=== PATIENT | female | born 1945 | race Caucasian/White ===

== ENCOUNTER 2022-07-15 14:00 | Emergency (ER) | payer MEDICARE, BC, SELFPAY ==
[2022-07-15 14:25] VITALS: BP 153/103; PULSE 90; RESP 20; TEMP 36.9; O2SAT 92
[2022-07-15 14:50] LABS: Appearance Urine Clear (Clear); Bilirubin Urine Negative (Negative); Blood Urine Negative (Negative); Color Urine Yellow (Yellow); Glucose Urine Negative (Negative); Ketones Urine 1+ (Negative); Leukocyte Esterase Urine Negative (Negative); Nitrite Urine Negative (Negative); Protein Urine Trace (Negative); Specific Gravity Urine 1.025 (1.000-1.030); Urobilinogen Urine 0.2 (0.2-1.0); pH Urine 6.5 (5.0-8.5)
[2022-07-15 14:57] LABS: RBC Urine 0-2 (0-2)
[2022-07-15 14:58] LABS: Squamous Epithelial Cell Urine Few (None-Few); WBC Urine 0-2 (0-5)
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
[2022-07-15 15:13] LABS: Basophils Absolute Auto 0.03 K/uL (0.00-0.30); Basophils Percent Auto 0.5 % (0.0-3.0); Eosinophils Absolute Auto 0.07 K/uL (0.00-0.50); Eosinophils Percent Auto 1.2 % (0.0-7.0); Hematocrit 42.4 % (33.0-51.0); Hemoglobin* 14.6 gm/dL (12.0-16.0); Immature Granulocytes Abs Auto 0.04 K/uL (0.00-0.30); Lymphocytes Percent Auto 16.6 % (20-44); Mean Corpuscular HGB Conc 34 gm/dL (32-36); Mean Corpuscular Hemoglobin 32 pg (26-34); Mean Corpuscular Volume 93 fL (80-100); Monocytes Percent Auto 8.6 % (0.0-11.0); Neutrophils Percent Auto 72.4 % (42.0-72.0); Platelet Count* 233 K/uL (140-440); RDW Coefficient of Variation % 12.7 % (11.5-15.5); Red Blood Count 4.54 m/uL (4.00-5.20); White Blood Count* 6.07 K/uL (4.50-11.00)
[2022-07-15 15:24] LABS: Slide Review Reflex No
[2022-07-15 15:29] LABS: Albumin* 4.4 g/dL (3.3-5.0)
[2022-07-15 15:30] LABS: Chloride* 97 mmol/L (96-114); Potassium* 3.7 mmol/L (3.6-5.1); Sodium* 132 mmol/L (135-149)
[2022-07-15 15:32] LABS: Carbon Dioxide* 26 mmol/L (20-32); Creatinine* 0.6 mg/dL (0.5-1.5); Estimated Glomerular Filt Rate 94 ml/min
[2022-07-15 15:33] LABS: Alanine Aminotransferase* 19 U/L (4-35); Alkaline Phosphatase* 54 U/L (40-150); Aspartate Amino Transferase* 29 U/L (12-35); Bilirubin Direct* 0.1 mg/dL (0.0-0.5); Bilirubin Total* 0.5 mg/dL (0.1-1.5); Blood Urea Nitrogen* 19 mg/dL (7-30); Calcium* 9.4 mg/dL (8.4-10.6); Glucose* 90 mg/dL (60-115); Total Protein* 7.2 g/dL (6.0-8.3)
--- NOTE | 2022-07-15 15:38 | CRLHL7_ITS ---
For Patients: As a result of the Cures Act, medical imaging exams and procedure reports are released immediately into your electronic medical record. You may view this report before your referring provider. If you have questions, please contact your health care provider. HISTORY: Cough. Weakness. TECHNIQUE: Two-view chest. COMPARISON: None. FINDINGS: Lungs are hyperinflated. Pulmonary emphysema. No airspace consolidation. No pleural effusion or pneumothorax. Pulmonary vasculature is normal. Cardiomediastinal silhouette size is normal. Aortic atherosclerotic calcifications. Degenerative changes of the spine. IMPRESSION: Hyperinflated lungs. Pulmonary emphysema. Dictated by Agustin Soto MD @ 07/15/2022 4:29:30 PM (Electronically Signed)
[2022-07-15 15:55] LABS: PCR FLU A Negative PCR FLU A (Negative); PCR FLU B Negative PCR FLU B (Negative); PCR RSV Negative PCR RSV (Negative)
--- NOTE | 2022-07-15 15:59 | ED.NURSE ---
Patient up to ed bathroom and back to room with no unsteadiness or difficulty noted.
[2022-07-15 16:09] LABS: SARS PCR* Negative SARS-CoV-2 (Negative)
--- NOTE | 2022-07-15 16:11 | ED.NURSE ---
Patient ordered grilled cheese sandwich.
--- NOTE | 2022-07-17 12:41 | PC.SOCIAL ---
Cherise Naranjo from [facility] called to see if pt. returned to the ED. She followed up with pt. by phone today and pt. told her she was still feeling week and was going to return to the ED. Updated Cherise that pt. is not at our hospital.
== END 2022-07-15 18:12 | disposition home or self-care (01) ==
PROVIDERS: Emergency Provider Family Medicine
DX: R53.1 Weakness (principal); T74.01XA Adult neglect or abandonment, confirmed, initial encounter; L29.9 Pruritus, unspecified
CPT/HCPCS: 36415; 71046; 80048; 80076; 81001; 85025; 87502; 87634; 87635; 93005; 99284; 99285

== ENCOUNTER 2023-03-01 02:38 | Outpatient (CLI) | payer MEDICARE, BC, SELFPAY | END 2023-03-01 02:39 | disposition home or self-care (01) | LOC: AMB 03-05 09:38 | PROVIDERS: Visit Provider Family Medicine | DX: R06.09 Other forms of dyspnea (principal); R53.81 Other malaise | CPT/HCPCS: A0425; A0427 ==

== ENCOUNTER 2023-03-01 03:25 | Inpatient (IN) | payer MEDICARE, BC, SELFPAY ==
[2023-03-01] VITALS (20 sets, daily range): BP systolic 99–131; BP diastolic 54–102; PULSE 53–79; RESP 16–22; TEMP 35.6–36.8; O2SAT 91–100; BMI 14.6
--- NOTE | 2023-03-01 03:37 | CRLHL7_ITS ---
For Patients: As a result of the Century Cures Act, medical imaging exams and procedure reports are released immediately into your electronic medical record. You may view this report before your referring provider. If you have questions, please contact your health care provider. Indication: Weight loss. Technique: Chest 2 views. Comparison: 07/15/2022. Findings/Impression: Cardiovascular and mediastinum: Heart size and vasculature are normal in caliber and appearance. Lungs and pleural spaces: There is blunting of the posterior costophrenic angle on the lateral image suggesting a pleural effusion. Remainder of the lungs and pleural spaces are clear. No pneumothorax. Bones and soft tissues: No significant findings. Dictated by Pastor Cyr MD @ 03/01/2023 4:38:38 AM (Electronically Signed)
[2023-03-01] MEDS: 0.9 % SODIUM CHLORIDE 500 ML 500 ML 1000 ML IV (03:49)
--- NOTE | 2023-03-01 03:50 | ED.NURSE ---
initial triage, no pulse O2 obtained, poor cap refill. pt changed for forhead O2 monitor, sats 98% on room air.
[2023-03-01 03:52] LABS: Basophils Absolute Auto 0.06 K/uL (0.00-0.30); Basophils Percent Auto 1.1 % (0.0-3.0); Eosinophils Absolute Auto 0.27 K/uL (0.00-0.50); Eosinophils Percent Auto 4.8 % (0.0-7.0); Hematocrit 47.4 % (33.0-51.0); Hemoglobin* 16.1 gm/dL (12.0-16.0); Immature Granulocytes Abs Auto 0.01 K/uL (0.00-0.30); Immature Granulocytes Pct Auto 0.2 %; Lymphocytes Absolute Auto 2.17 K/uL (0.90-2.90); Lymphocytes Percent Auto 38.4 % (20-44); Mean Corpuscular HGB Conc 34 gm/dL (32-36); Mean Corpuscular Hemoglobin 32 pg (26-34); Mean Corpuscular Volume 94 fL (80-100); Neutrophils Absolute Auto 2.86 K/uL (1.7-7.0); Neutrophils Percent Auto 50.5 % (42.0-72.0); Platelet Count* 204 K/uL (140-440); RDW Coefficient of Variation % 13.4 % (11.5-15.5); Red Blood Count 5.05 m/uL (4.00-5.20); Slide Review Reflex No; White Blood Count* 5.65 K/uL (4.50-11.00)
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
[2023-03-01 04:04] LABS: Albumin* 3.7 g/dL (3.3-5.0); Chloride* 100 mmol/L (96-114)
[2023-03-01 04:05] LABS: Potassium* 3.3 mmol/L (3.6-5.1); Sodium* 135 mmol/L (135-149)
[2023-03-01 04:07] LABS: Aspartate Amino Transferase* 123 U/L (12-35); Bilirubin Total* 0.5 mg/dL (0.1-1.5); Blood Urea Nitrogen* 13 mg/dL (7-30); Carbon Dioxide* 27 mmol/L (20-32); Creatinine* 0.9 mg/dL (0.5-1.5); Estimated Glomerular Filt Rate 67 ml/min; Total Protein* 6.5 g/dL (6.0-8.3)
[2023-03-01 04:08] LABS: Alanine Aminotransferase* 71 U/L (4-35); Alkaline Phosphatase* 46 U/L (40-150); Calcium* 9.4 mg/dL (8.4-10.6); Glucose* 120 mg/dL (60-115)
--- NOTE | 2023-03-01 06:30 | ED.NURSE ---
Patients brief changes, patient cleaned up.
--- NOTE | 2023-03-01 06:42 | ED.NURSE ---
Nurse to Nurse report given. Patient going to room 277.
--- NOTE | 2023-03-01 07:48 | PC.NURSE ---
[id number] Pt arrived, took vitals and oriented to room. Report given to day nurse. Ambulated to bed from ED bed, weight taken on standing scale. Pt tearful explaining why she is here.
--- NOTE | 2023-03-01 08:05 | CRLHL7_ITS ---
For Patients: As a result of the Century Cures Act, medical imaging exams and procedure reports are released immediately into your electronic medical record. You may view this report before your referring provider. If you have questions, please contact your health care provider. INDICATION: Pleural effusion. Transaminitis. Weight loss. Weakness TECHNIQUE: CT chest PE, abdomen and pelvis acquired with 95 cc Isovue 370 IV contrast. COMPARISON: None. FINDINGS: CHEST: Cardiovascular structures: Heart size is normal. Thoracic aorta and main pulmonary artery are normal in caliber. No sign of pulmonary embolism. Mediastinum and darcy: No mass or adenopathy. Lungs and pleura: Trace pleural effusions. No acute infiltrates and no suspicious nodules. Moderate COPD changes. No pneumothorax. Chest wall and axilla: No mass or adenopathy. Bones: No suspicious bone lesions. Unremarkable for age. ABDOMEN AND PELVIS: Liver: Hyperemia demonstrated in the liver adjacent to the gallbladder fossa. Liver is otherwise unremarkable. Gallbladder and bile ducts: Gallbladder is mildly dilated with pericholecystic fluid and possible wall thickening. Pancreas: Unremarkable. Spleen: Unremarkable. Adrenal glands: Unremarkable. Kidneys: Unremarkable. GI tract: Stool filled distention of the rectum and sigmoid colon. Moderate amount of stool in the remainder of the colon. Remainder of the GI tract appears within normal limits in caliber and appearance. Vascular structures: Dense aortic atherosclerosis without aneurysm. Lymph nodes: Unremarkable. Miscellaneous: Unremarkable. No free air or significant free fluid. Pelvic Organs: Unremarkable. Bones: No suspicious bone lesions. Arthritis present in the lower lumbar spine and both hip joints. IMPRESSION: 1. Trace pleural effusions. 2. No gallstone visualized. However, the gallbladder is mildly dilated with possible wall thickening and pericholecystic fluid. There is also hyperemia in the liver adjacent to the gallbladder fossa. These findings suggest the possibility of acute cholecystitis. 3. Moderate constipation pattern in the distal colon. 4. No other acute or critical findings. Please note that all CT scans at this facility use dose modulation, iterative reconstruction, and/or weight-based dosing when appropriate to reduce radiation dose to as low as reasonably achievable. Dictated by Pastor Cyr MD @ 03/01/2023 9:53:32 AM (Electronically Signed)
--- NOTE | 2023-03-01 08:13 | CRLHL7_ITS ---
For Patients: As a result of the Century Cures Act, medical imaging exams and procedure reports are released immediately into your electronic medical record. You may view this report before your referring provider. If you have questions, please contact your health care provider. Indication: Weakness Technique: Volumetric multidetector CT images of the head were obtained without the administration of low osmolar intravenous contrast. Comparison: None available Findings: There is no intra-axial or extra-axial fluid collection. There is no mass effect or midline shift. There is age-related cortical atrophy with mild sulcal widening and ex vacuo dilatation of the lateral ventricles. There are chronic small vessel disease changes in the subcortical and periventricular white matter without lost doyle-white differentiation. The orbits and their contents are grossly within normal limits. The bony calvarium is grossly intact. The paranasal sinuses are clear. The mastoid air cells are well aerated. Impression: 1. Age-related changes of the brain without acute intracranial abnormality. Please note that all CT scans at this facility use dose modulation, iterative reconstruction, and/or weight-based dosing when appropriate to reduce radiation dose to as low as reasonably achievable. Dictated by Dionisio Vale MD @ 03/01/2023 9:25:30 AM (Electronically Signed)
[2023-03-01 08:41] LABS: HCO3 VBG 30 mmol/L (21-28); Ionized Calcium* 1.22 mmol/L (1.11-1.30); Lactate* 1.2 mmol/L (0.5-1.9); PCO2 VBG 58 mmHG (40-50)
[2023-03-01 08:43] LABS: PO2 VBG < 20.0 mmHG (25-47)
[2023-03-01 08:53] LABS: Hemoglobin A1C* 5.32 % (0-5.6)
[2023-03-01 08:58] LABS: Chloride* 102 mmol/L (96-114); Potassium* 3.6 mmol/L (3.6-5.1); Sodium* 136 mmol/L (135-149)
[2023-03-01 09:00] LABS: Creatinine* 0.9 mg/dL (0.5-1.5); Est. Creatinine Clearance* 34.46; Estimated Glomerular Filt Rate 67 ml/min
[2023-03-01 09:01] LABS: Carbon Dioxide* 31 mmol/L (20-32); Creatine Kinase* 89 U/L (41-117); Gamma Glutamyl Transpeptidase* 20 U/L (8-55)
[2023-03-01 09:02] LABS: Blood Urea Nitrogen* 14 mg/dL (7-30); Calcium* 9.7 mg/dL (8.4-10.6); Glucose* 94 mg/dL (60-115); Magnesium* 2.2 mg/dL (1.5-2.6); Phosphorus* 3.9 mg/dL (2.5-4.5)
--- NOTE | 2023-03-01 09:18 | PM.IMHP1 ---
Hospitalist- H&P: HPI History of Present Illness Date Seen: 03/01/23 Chief complaint: Weakness, Shortness of breath Narrative: ADMISSION HISTORY AND PHYSICAL - HOSPITALIST Chief Complaint: Non-STEMI, weakness, poor self-care, hypothyroidism HPI: 77-year-old Kelly presents to our emergency room after calling 911. Lives alone and has been progressively getting weaker over the last months and days. Reportedly she has not been out of bed for the last 3-4 days. She states about 10 pm last night she had a acute worsening of her weakness. She describes some jaw tightness, diaphoretic, and increased dyspnea. She called EMS as she couldn't breathe. EMS found her covered in stool, urine, unkept. Cognitively sharp however. Socially isolated. Has not seen a doctor since her wellness physical in 2021. Has had progressive weight loss. Has a history of hypothyroidism, hypertension, osteoporosis, vitamin-D deficiency and smoking. Upon arrival to the emergency room her vital signs were stable. Initial workup showed some mild hypokalemia and a TSH of 123. ER COURSE: Chest x-ray, labs, fluid resuscitation - further cares requested by the hospitalist CODE STATUS: FULL CODE EMERGENCY CONTACT PLAN: Very private but her Step daughter, Amarilis, is her emergency POA. [phone] I've updated the PFSH, medications and allergies in the Expanse tabs. INVESTIGATIONS: LABS/MICRO/ECG/IMAGING ADMISSION WEIGHT 98.8LBS, 44KG Wt 46 kg (101 lb 6.4 oz) in 01/05 Wt 52.3 kg (115 lb 6.4 oz) 08/05 Wt 52.6 kg (116 lb) 06/04 101/63. PULSE 60. RESPIRATIONS 20. AFEBRILE. O2 SATS ARE 94% on room air. CBC reflects a hemoglobin of 16.1, hemoconcentrated? Otherwise unremarkable Blood gas 7.3, pCO2 58 Potassium was initially 3.3 but has improved to 3.6 with normal saline infusion. Remarkably all of her electrolytes, renal function, A1c, lactate, calcium, phosphorus, magnesium, GGT all normal. Of note her AST is 123, previously 29 ALT is 71 when previously 19 Total bili 0.5 Like I said above GGT was normal at 20 Total CK 89 Troponin 0.29, down trended to 0.26 BNP 870 Lipid panel was very reassuring with an elevated HDL C reactive protein less than 0.5 TSH 123 Free T4 less than 0.07 Total T3 pending UA pending CT abdomen pelvis IMPRESSION: 1. Trace pleural effusions. 2. No gallstone visualized. However, the gallbladder is mildly dilated with possible wall thickening and pericholecystic fluid. There is also hyperemia in the liver adjacent to the gallbladder fossa. These findings suggest the possibility of acute cholecystitis. 3. Moderate constipation pattern in the distal colon. 4. No other acute or critical findings. Head CT 1. Age-related changes of the brain without acute intracranial abnormality. Echo and right upper quadrant ultrasound pending REVIEW OF SYSTEMS: 12-point ROS completed with patient and negative unless otherwise stated in HPI or below. PHYSICAL EXAM: CONSTITUTIONAL: Cognitively sharp. Cachectic. Sallow. Reddened eyes. Significant ptosis VITAL SIGNS: see record. HEENT: Normocephalic, atraumatic. Significant ptosis. Hyperemic conjunctiva exposed. NECK: No JVD. No carotid bruit, no thyromegaly, no adenopathy. CHEST: Clear to auscultation bilaterally HEART: S1 and S2 normal. No harsh murmurs. Edema MUSCULOSKELETAL: No gross joint deformity or swelling. NEURO: Cranial nerves intact. Grossly intact. No asymmetric findings. SKIN: No rashes, petechiae, concerning changes PSYCHIATRIC: Euthymic. ADMIT TO MEDSURG: FLOOR CARE DVT: Lovenox GI: PO intake Time spent: 70 minutes examining patient, conferring with family and patient, care staff, developing care plan [facility] Medical History (Updated 03/01/23 @ 14:31 by Kenzie Key MD) Keratoconjunctivitis of both eyes ?H16.203 - Unspecified keratoconjunctivitis, bilateral (ICD-10) Tobacco abuse ?Z72.0 - Tobacco use (ICD-10) Depression with anxiety ?F41.8 - Other specified anxiety disorders (ICD-10) Osteoporosis ?M81.0 - Age-related osteoporosis without current pathological fracture (ICD-10) Vitamin D deficiency ?E55.9 - Vitamin D deficiency, unspecified (ICD-10) Failure to thrive in adult ?R62.7 - Adult failure to thrive (ICD-10) Hypothyroidism ?E03.9 - Hypothyroidism, unspecified (ICD-10) Psoriasis ?L40.9 - Psoriasis, unspecified (ICD-10) Hyperlipidemia ?E78.5 - Hyperlipidemia, unspecified (ICD-10) Hypertension ?I10 - Essential (primary) hypertension (ICD-10) Surgical History (Updated 03/01/23 @ 10:08 by Kenzie Key MD) History of wisdom tooth extraction ?K08.409 - Partial loss of teeth, unspecified cause, unspecified class (ICD-10) History of cataract extraction ?Z98.49 - Cataract extraction status, unspecified eye (ICD-10) History of carpal tunnel release ?Z98.890 - Other specified postprocedural states (ICD-10) History of bunionectomy ?Z98.890 - Other specified postprocedural states (ICD-10) Social History What is your current living situation: I presently have a place to live Problems where you live: pests, such as bugs, ants, or mice and inadequate lighting Problems where you live details: She says she hasn't been able to keep up with house cares, can't do laundry because it is in the basement. In the past 12 months, utilities in danger of being shut off: no In the past 12 mos, have been you worried that your food would run out before you had money to buy more?: never true In the past 12 mos, the food you bought just didn't last and you didn't have money to buy more?: never true Highest level of school completed/degree received: high school graduate Smoking Status: Current every day smoker What tobacco products do you use: cigarettes Smoking packs per day: 0.5 Smoking cigarettes per day: 10.0 Do you use any of these nicotine containing products: None Second hand tobacco smoke exposure: Yes How often do you have a drink containing alcohol: never How often do you have six or more drinks on one occasion: Never AUDIT-C Alcohol total score: 0 Non-prescribed substance use: denies use Caffeine: Yes (coffee 1/day) How often does anyone, including family, friends and others, physically hurt you: How often does anyone, including family, friends and others, insult or talk down to you: How often does anyone, including family, friends and others, threaten you with harm: How often does anyone, including family, friends and others, scream or curse at you: service: No Meds Home Medications and Allergies Home Medications Medication Instructions Recorded Confirmed Type hydrochlorothiazide 25 mg tablet 25 mg PO DAILY 07/15/22 03/01/23 History potassium chloride 10 mEq 10 meq PO DAILY 07/15/22 03/01/23 History tablet,extended release rosuvastatin 10 mg tablet 10 mg PO HS 07/15/22 03/01/23 History levothyroxine 88 mcg tablet 88 mcg PO DAILY 03/01/23 03/01/23 History risedronate 150 mg tablet 150 mg PO .MONTHLY 03/01/23 03/01/23 History Allergies Allergy/AdvReac Type Severity Reaction Status Date / Time No Known Drug Allergies Allergy Verified 07/15/22 14:25 Exam Const: Vital Signs, click to edit/add: Vital Signs - 24 hr 03/01/23 03:27 03/01/23 03:40 03/01/23 04:01 Temperature 96.1 F L Pulse Rate 65 60 Pulse Rate [Left P ulse Oximeter] 79 Pulse Rate [Pulse Oximeter] Respiratory Rate 16 Blood Pressure 99/66 Blood Pressure [Ri ght Arm] Blood Pressure [Ri ght Upper Arm] 131/102 H Pulse Oximetry 96 91 Oxygen Delivery [facility] 03/01/23 04:02 03/01/23 04:30 03/01/23 04:31 Temperature Pulse Rate 61 59 L 59 L Pulse Rate [Left P ulse Oximeter] Pulse Rate [Pulse Oximeter] Respiratory Rate Blood Pressure 113/69 Blood Pressure [Ri ght Arm] Blood Pressure [Ri ght Upper Arm] Pulse Oximetry 94 97 96 Oxygen Delivery [facility] 03/01/23 05:00 03/01/23 05:01 03/01/23 05:02 Temperature Pulse Rate 58 L 58 L 60 Pulse Rate [Left P ulse Oximeter] Pulse Rate [Pulse Oximeter] Respiratory Rate Blood Pressure 111/64 Blood Pressure [Ri ght Arm] Blood Pressure [Ri ght Upper Arm] Pulse Oximetry 98 94 99 Oxygen Delivery [facility] 03/01/23 05:30 03/01/23 05:31 03/01/23 06:55 Temperature Pulse Rate 60 Pulse Rate [Left P ulse Oximeter] Pulse Rate [Pulse Oximeter] 60 Respiratory Rate 18 Blood Pressure 114/66 Blood Pressure [Ri ght Arm] 101/63 Blood Pressure [Ri ght Upper Arm] Pulse Oximetry 97 96 98 Oxygen Delivery Me [facility] Room Air 03/01/23 07:23 03/01/23 07:23 Temperature Pulse Rate Pulse Rate [Left P ulse Oximeter] Pulse Rate [Pulse Oximeter] Respiratory Rate 18 20 Blood Pressure Blood Pressure [Ri ght Arm] Blood Pressure [Ri ght Upper Arm] Pulse Oximetry 98 94 Oxygen Delivery Me thod Room Air Room Air Hospitalist - H&P: Result Labs Labs: Short CBC 03/01/23 Range/Units 03:45 WBC 5.65 (4.50-11.00) K/uL Hgb 16.1 H (12.0-16.0) gm/dL Hct 47.4 (33.0-51.0) % Plt Count 204 (140-440) K/uL BMP 03/01/23 03:45 Sodium 135 Potassium 3.3 L Chloride 100 Carbon Dioxide 27 BUN 13 Creatinine 0.9 Glucose 120 H Calcium 9.4 Liver Function 03/01/23 Range/Units 03:45 Total Bilirubin 0.5 (0.1-1.5) mg/dL AST 123 H (12-35) U/L ALT 71 H (4-35) U/L Alkaline Phosphatase 46 (40-150) U/L Albumin 3.7 (3.3-5.0) g/dL Assessment and Plan Assessment and plan (1) Non-STEMI (non-ST elevated myocardial infarction): Problem comment: -no chest pain or vital instability -echo ordered -ekg shows low voltage pattern and possible inferior infarct pattern -will give aspirin and plavix and order telemetry, trend troponin Final Impressions: 1. Normal left ventricular size, mildly increased wall thickness, normal global systolic function, calculated EF of 60 %. 2. Right ventricular cavity size is normal, global systolic RV function is normal. 3. Normal left atrium size. 4. The aortic valve is sclerotic, no stenosis and trivial regurgitation. 5. The mitral valve is moderate mitral annular calcification (posterior), trace mitral regurgitation. 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 7. Mild-moderate tricuspid regurgitation. 8. Normal estimated pulmonary pressures by tricuspid regurgitation velocity and right atrial pressure (21 mmHg plus RAP). 9. Small pericardial effusion. Status: Acute (2) Protein-calorie malnutrition: Problem comment: weight loss signficant in since 07/2020, 17lbs 15% of total body weight. BMI only 14.6 Status: Acute (3) Generalized weakness: Problem comment: PT/OT have worked with her today. using 4w walker but able to ambulate and do stairs. Status: Acute (4) Hypothyroidism: Problem comment: noncompliant with supplement T3 pending typically on 88mcg. will do 7 days of 150mcg and then back to 88mcg. Status: Acute (5) Keratoconjunctivitis of both eyes: Problem comment: treated with Maxitrol drops in the past needs outpatient ophthalmology eval Status: Acute (6) Hypertension: Problem comment: -holding HCTZ -weight loss, soft pressures on presentation Status: Acute (7) Transaminitis: Problem comment: -total bili and alk phos normal -AST/ALT elevated -crp normal -CT suggests acute choleycystitis -abd u/s ordered for f/u -I think this is likely from dehydration, NSTEMI Status: Acute (8) Failure to thrive in adult: Status: Acute (9) Depression with anxiety: Problem comment: -no current medication profile for this -socially isolated and poor management of self care Status: Acute (10) Compliance poor: Status: Acute (11) Osteoporosis: Problem comment: -f/u on Vit D level. Oral Calcium/Vit D ordered DEXA 01/04 Lumbar spine, -2.5 Femoral neck, -2.2 Left total hip, -2.8 Total hip, -2.7 FRAX RISK CALCULATION (USED FOR OSTEOPENIA ONLY): 10-year probability of major osteoporotic fracture: 25.3%. 10-year probability of hip fracture: 17.8%. IMPRESSION: Osteoporosis. Status: Acute (12) Vitamin D deficiency: Problem comment: -recheck level Status: Acute (13) Psoriasis: Status: Acute (14) Hyperlipidemia: Problem comment: presumbably off statin excellent profile (likely related to weight loss) - will follow. Status: Acute (15) Tobacco abuse: Problem comment: -1/2 ppd. Status: Acute
[2023-03-01 09:19] LABS: Free T4 Free Thyroxine* < 0.07 ng/dL (0.70-1.85)
[2023-03-01 09:20] LABS: C Reactive Protein* < 0.5 mg/dL (0.5-1.0); NT Pro B Type NatriureticPept* 873 pg/mL; Troponin I* 0.29 ng/mL (0.01-0.04)
--- NOTE | 2023-03-01 09:26 | PC.SOCIAL ---
Addendum entered by Tiana Owusu LCSW 03/01/23 15:37: Updated Cherise Naranjo [facility] patient not discharging today, likely next week. Cherise stated patient should not return to living on her own. Social work to follow up. Original Note: Call from [facility], Cherise Naranjo [phone], who received [facility] and would like to be kept updated on patient.
[2023-03-01 09:43] LABS: Cholesterol* 253 mg/dL (90-199); HDL Cholesterol* 100 mg/dL (>=50); LDL Cholesterol Calculated 127 mg/dL (<100); Triglycerides* 128 mg/dL (40-149)
[2023-03-01 10:54] LABS: Vitamin D 25 Hydroxy* 31 ng/mL (30-80)
[2023-03-01] MEDS: 5 % DEX/0.45 SOD CHL+KCL20 mEq 1,000 ML 125 ML IV ×2 (11:10→19:02)
[2023-03-01] MEDS: POTASSIUM CHLORIDE 10 MEQ CAPSULE ER PO (11:10)
[2023-03-01] MEDS: LEVOTHYROXINE 75 MCG TABLET 150 MCG PO (11:11)
[2023-03-01 11:33] LABS: Appearance Urine Clear (Clear); Bilirubin Urine Negative (Negative); Blood Urine Negative (Negative); Color Urine Yellow (Yellow); Glucose Urine Negative (Negative); Ketones Urine Trace (Negative); Leukocyte Esterase Urine Negative (Negative); Nitrite Urine Negative (Negative); Protein Urine Trace (Negative); Specific Gravity Urine 1.015 (1.000-1.030); Urobilinogen Urine 0.2 (0.2-1.0)
[2023-03-01 11:53] LABS: RBC Urine 0-2 (0-2); Squamous Epithelial Cell Urine Few (None-Few); WBC Urine 0-2 (0-5)
[2023-03-01 11:54] LABS: Other Sediment Urine Moderate
[2023-03-01 13:42] LABS: Troponin I* 0.26 ng/mL (0.01-0.04)
[2023-03-01] MEDS: CLOPIDOGREL 75 MG TABLET 300 MG PO (14:22)
[2023-03-01] MEDS: ASPIRIN 81 MG TAB.CHEW 324 MG PO (14:22)
[2023-03-01] MEDS: METOPROLOL TARTRATE 25 MG TABLET 12.5 MG PO (14:37)
--- NOTE | 2023-03-01 16:00 | CRLHL7_ITS ---
For Patients: As a result of the Century Cures Act, medical imaging exams and procedure reports are released immediately into your electronic medical record. You may view this report before your referring provider. If you have questions, please contact your health care provider. INDICATION: Right upper quadrant abdomen pain. TECHNIQUE: Ultrasound abdomen limited. Sonographic images of the gallbladder were obtained using doyle-scale and color Doppler images. COMPARISON: None. FINDINGS: Gallbladder: Mildly distended gallbladder with nonspecific wall thickening. No cholelithiasis. Common bile duct: 5 mm. IMPRESSION: Mildly distended gallbladder with nonspecific wall thickening, but without cholelithiasis. Findings are equivocal for acute cholecystitis. Recommend correlation with localized physical examination, and laboratory values. Consider HIDA scan for further evaluation. No biliary obstruction. Dictated by Josep Jacobs MD @ 03/01/2023 5:19:01 PM (Electronically Signed)
--- NOTE | 2023-03-01 18:27 | PC.NURSE ---
End of Shift: Patient pleasant and cooperative, Alert and oriented. Patient vitally stable, lungs clear/diminished, BS WNL, IV running D5 KCL at 125. Patient SBA, walker. Patient denies pain. Patient has urinated twice and reports constipation. Patient tolerating regular diet and had two ensures. Patient has been up to chair. Patient has scabs all over body but especially legs due to patient scratching skin due to by itchy. Patient has mepilex on coccyx for a tiny skin tear. Patient tele=NSR/SA.
[2023-03-01] MEDS: ROSUVASTATIN CALCIUM 10 MG TABLET PO (21:24)
--- NOTE | 2023-03-01 23:50 | PC.NURSE ---
End of shift nursing note, care provided from [id number]. Pt alert and oriented but states she is tired and feels full from eating more in hospital than she had been at home. Voided in evening. Scheduled Metoprolol held, HR low to mid 50bpms and BP on lower side but stable, narrative writer spoke to MD and ok to hold med. IVF continues at 125ml/hr. Pt denies pain. Call light within reach and uses appropriately.
[2023-03-02] VITALS (11 sets, daily range): BP systolic 95–128; BP diastolic 48–66; PULSE 52–59; RESP 16–24; TEMP 36.4–36.6; O2SAT 90–95
[2023-03-02] MEDS: 5 % DEX/0.45 SOD CHL+KCL20 mEq 1,000 ML 125 ML IV (02:58)
[2023-03-02 06:47] LABS: HCO3 VBG 31 mmol/L (21-28); PO2 VBG 23.5 mmHG (25-47); pH VBG 7.279 (7.32-7.43)
[2023-03-02 06:54] LABS: PCO2 VBG 66 mmHG (40-50)
[2023-03-02 06:55] LABS: Hematocrit 41.3 % (33.0-51.0); Hemoglobin* 13.9 gm/dL (12.0-16.0); Mean Corpuscular HGB Conc 34 gm/dL (32-36); Mean Corpuscular Hemoglobin 32 pg (26-34); Mean Corpuscular Volume 95 fL (80-100); Platelet Count* 167 K/uL (140-440); Red Blood Count 4.33 m/uL (4.00-5.20); White Blood Count* 4.76 K/uL (4.50-11.00)
[2023-03-02 07:01] LABS: Slide Review Reflex No
[2023-03-02] MEDS: LEVOTHYROXINE 75 MCG TABLET 150 MCG PO (07:01)
[2023-03-02 07:04] LABS: INR 0.85 (0.91-1.10); Prothrombin Time 12.1 Seconds
[2023-03-02 07:10] LABS: Iron* 94 ug/dL (37-170)
[2023-03-02 07:18] LABS: Albumin* 3.5 g/dL (3.3-5.0); Chloride* 102 mmol/L (96-114); Sodium* 131 mmol/L (135-149)
[2023-03-02 07:19] LABS: Potassium* 4.8 mmol/L (3.6-5.1)
[2023-03-02 07:20] LABS: Percent Iron Saturation 41 % (20-50); Total Iron Binding Capacity 230 ug/dL (265-497)
[2023-03-02 07:21] LABS: Alkaline Phosphatase* 41 U/L (40-150); Aspartate Amino Transferase* 84 U/L (12-35); Bilirubin Total* 0.2 mg/dL (0.1-1.5); Blood Urea Nitrogen* 16 mg/dL (7-30); Carbon Dioxide* 30 mmol/L (20-32); Creatinine* 0.9 mg/dL (0.5-1.5); Est. Creatinine Clearance* 36.98; Estimated Glomerular Filt Rate 67 ml/min; Lipase* 1338 U/L (23-300); Total Protein* 6.1 g/dL (6.0-8.3)
[2023-03-02 07:22] LABS: Alanine Aminotransferase* 62 U/L (4-35); Calcium* 9.2 mg/dL (8.4-10.6); Glucose* 93 mg/dL (60-115)
[2023-03-02 07:37] LABS: Troponin I* 0.18 ng/mL (0.01-0.04)
[2023-03-02 07:38] LABS: C Reactive Protein* < 0.5 mg/dL (0.5-1.0); NT Pro B Type NatriureticPept* 557 pg/mL
--- NOTE | 2023-03-02 08:18 | PM.IMPN1 ---
Progress Note: A&P Assessment and plan (1) Non-STEMI (non-ST elevated myocardial infarction): Problem details: -no chest pain or vital instability -echo ordered - reviewed. -ekg shows low voltage pattern and possible inferior infarct pattern -will give aspirin and plavix and order telemetry, trend troponin (improving) -assymptomatic bradycardia - will decrease beta junior to 6.25 mg of metoprolol bid. Final Impressions: 1. Normal left ventricular size, mildly increased wall thickness, normal global systolic function, calculated EF of 60 %. 2. Right ventricular cavity size is normal, global systolic RV function is normal. 3. Normal left atrium size. 4. The aortic valve is sclerotic, no stenosis and trivial regurgitation. 5. The mitral valve is moderate mitral annular calcification (posterior), trace mitral regurgitation. 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 7. Mild-moderate tricuspid regurgitation. 8. Normal estimated pulmonary pressures by tricuspid regurgitation velocity and right atrial pressure (21 mmHg plus RAP). 9. Small pericardial effusion. Status: Acute (2) Hypothyroidism: Problem details: noncompliant with supplementation T3 pending typically on 88mcg. will do 7 days of 150mcg and then back to 88mcg. Status: Acute (3) COPD (chronic obstructive pulmonary disease): Problem details: -new dx (tobacco use, CT findings, CO2 retention) - chronic changes. -RT to evaluate for bedside spirometry, pulmonary toilet, etc Status: Acute (4) Transaminitis: Problem details: -total bili and alk phos normal -AST/ALT elevated -crp normal -CT suggests acute choleycystitis -abd u/s ordered for f/u - likely nothing acute. can consider HIDA schedule as needed/clinically indicated. -I think this is likely from dehydration, NSTEMI Status: Acute (5) Protein-calorie malnutrition: Problem details: weight loss signficant in since 07/2020, 17lbs 15% of total body weight. increased with hydration; back to 106# Status: Acute (6) Elevated lipase: Problem details: soft belly. reassuring imaging. trend. Status: Acute (7) Generalized weakness: Problem details: PT/OT have worked with her today. using 4w walker but able to ambulate and do a couple of stairs. Status: Acute (8) Osteoporosis: Problem details: -f/u on Vit D level. Oral Calcium/Vit D ordered DEXA 01/04 Lumbar spine, -2.5 Femoral neck, -2.2 Left total hip, -2.8 Total hip, -2.7 FRAX RISK CALCULATION (USED FOR OSTEOPENIA ONLY): 10-year probability of major osteoporotic fracture: 25.3%. 10-year probability of hip fracture: 17.8%. IMPRESSION: Osteoporosis. Status: Acute (9) Vitamin D deficiency: Problem details: -recheck level Status: Acute (10) Hyperlipidemia: Problem details: presumbably off statin restart given NSTEMI during this hospitalization Status: Acute (11) Hypertension: Problem details: -holding HCTZ -weight loss, soft pressures on presentation Status: Acute (12) Keratoconjunctivitis of both eyes: Problem details: treated with Maxitrol drops in the past needs outpatient ophthalmology eval Status: Acute (13) Tobacco abuse: Problem details: -1/2 ppd. Status: Acute Subjective Date Seen: 03/02/23 Interval history: Daily Progress Note - Hospital Medicine Day #: 2 CC: NSTEMI, weakness, FTT, severe hypothyroidism OVERNIGHT UPDATES FROM STAFF & MED, LAB, IMAGING UPDATES -generally improving. -eating well, poor liquid intake 116/59. Pulse 53. Rest per 16. Afebrile. 93% on room air. Standing weight this morning 48.2 kilos - 106 lb CBC unremarkable INR 0.8 Blood gas 7.279 PCO2 66 Sodium 131, rest of the metabolic panel is reassuring. LFTs are downtrending, however lipase 1300 Troponin is down trending C reactive protein and BNP are both reassuring Abdominal U/S: Mildly distended gallbladder with nonspecific wall thickening, but without cholelithiasis. Findings are equivocal for acute cholecystitis. Recommend correlation with localized physical examination, and laboratory values. Consider HIDA scan for further evaluation. No biliary obstruction. CT CAP: Trace pleural effusions Moderate COPD changes Dense aortic atherosclerosis without aneurysm Moderate constipation pattern in the distal colon Echo: Normal LV size, mild increased wall thickness. Normal global systolic function. EF 60%. Right ventricular cavity size is normal, global systolic RV function is normal. Moderate mitral annular calcification, posterior Tricuspid valve is myxomatous [id number] tricuspid regurg Normal estimated pulmonary pressures Small pericardial effusion Objective: Vitals: see above Lungs: Clear. Cardiac: S1S2. Disposition/Potential discharge - Likely to return to previous living situation. Total time is 35 minutes with greater than 50% spent in counseling and coordination of care. Exam Const: Vital Signs, click to edit/add: Vital Signs - 24 hr 03/01/23 09:21 03/01/23 09:32 03/01/23 11:00 Temperature 98 F Pulse Rate Pulse Rate [Pulse Oximeter] 59 L Pulse Rate [orthos tatic lying] 59 L Pulse Rate [orthos tatic sitting] 59 L Pulse Rate [orthos tatic standing] 63 Respiratory Rate 18 18 Blood Pressure [Ri ght Arm] 110/54 L Blood Pressure [or thostatic lying] 124/63 Blood Pressure [or thostatic sitting] 110/65 Blood Pressure [or thostatic standing ] 109/57 L Pulse Oximetry 100 94 Oxygen Delivery Me thod Room Air Room Air 03/01/23 13:59 03/01/23 15:00 03/01/23 15:00 Temperature Pulse Rate 64 Pulse Rate [Pulse Oximeter] 61 Pulse Rate [orthos tatic lying] Pulse Rate [orthos tatic sitting] Pulse Rate [orthos tatic standing] Respiratory Rate 22 Blood Pressure [Ri ght Arm] Blood Pressure [or thostatic lying] Blood Pressure [or thostatic sitting] Blood Pressure [or thostatic standing ] Pulse Oximetry 92 Oxygen Delivery Me thod 03/01/23 15:00 03/01/23 15:00 03/01/23 19:00 Temperature 97.7 F 98.3 F Pulse Rate 58 L Pulse Rate [Pulse Oximeter] 61 56 L Pulse Rate [orthos tatic lying] Pulse Rate [orthos tatic sitting] Pulse Rate [orthos tatic standing] Respiratory Rate 22 18 Blood Pressure [Ri ght Arm] 112/74 115/58 L Blood Pressure [or thostatic lying] Blood Pressure [or thostatic sitting] Blood Pressure [or thostatic standing ] Pulse Oximetry 92 94 Oxygen Delivery Me thod Room Air Room Air 03/01/23 23:00 03/01/23 23:00 03/01/23 23:00 Temperature Pulse Rate 53 L Pulse Rate [Pulse Oximeter] 56 L Pulse Rate [orthos tatic lying] Pulse Rate [orthos tatic sitting] Pulse Rate [orthos tatic standing] Respiratory Rate 18 Blood Pressure [Ri ght Arm] Blood Pressure [or thostatic lying] Blood Pressure [or thostatic sitting] Blood Pressure [or thostatic standing ] Pulse Oximetry 92 Oxygen Delivery Me thod 03/01/23 23:00 03/02/23 03:00 03/02/23 08:08 Temperature 98 F Pulse Rate 55 L Pulse Rate [Pulse Oximeter] 54 L 56 L Pulse Rate [orthos tatic lying] Pulse Rate [orthos tatic sitting] Pulse Rate [orthos tatic standing] Respiratory Rate 18 16 Blood Pressure [Ri ght Arm] 125/62 Blood Pressure [or thostatic lying] Blood Pressure [or thostatic sitting] Blood Pressure [or thostatic standing ] Pulse Oximetry 91 90 Oxygen Delivery Me thod Room Air Room Air 03/02/23 08:08 Temperature 97.5 F L Pulse Rate Pulse Rate [Pulse Oximeter] 53 L Pulse Rate [orthos tatic lying] Pulse Rate [orthos tatic sitting] Pulse Rate [orthos tatic standing] Respiratory Rate 16 Blood Pressure [Ri ght Arm] 116/59 L Blood Pressure [or thostatic lying] Blood Pressure [or thostatic sitting] Blood Pressure [or thostatic standing ] Pulse Oximetry 93 Oxygen Delivery Me thod Room Air Labs Labs: Laboratory Results - last 24 hr 03/01/23 03/01/23 03/01/23 08:27 08:34 10:13 WBC RBC Hgb Hct MCV MCH MCHC Plt Count INR VBG pH 7.320 VBG pCO2 58 H VBG pO2 < 20.0 L VBG HCO3 30 H Sodium 136 Potassium 3.6 Chloride 102 Carbon Dioxide 31 BUN 14 Creatinine 0.9 Estimated Creat Clear 34.46 Estimated GFR 67 Glucose 94 Hemoglobin A1c 5.32 Lactate 1.2 Calcium 9.7 Ionized Calcium Mandi 1.22 Phosphorus 3.9 Magnesium 2.2 Iron TIBC % Saturation Ferritin Total Bilirubin GGT 20 AST ALT Alkaline Phosphatase Total Creatine Kinase 89 Troponin I 0.29 H* C-Reactive Protein < 0.5 L NT-Pro-B Natriuret Pep 873 Total Protein Albumin Triglycerides 128 Cholesterol 253 H LDL Cholesterol, Calc 127 H HDL Cholesterol 100 Lipase 25-OH Vitamin D Total 31 Free T4 < 0.07 L Urine Color Urine Appearance Urine pH Ur Specific [place] Urine Protein Urine Glucose (UA) Urine Ketones Urine Blood Urine Nitrite Urine Bilirubin Urine Urobilinogen Ur Leukocyte Esterase Urine RBC Urine WBC Ur Squamous Epith Cells Other Sediment Urine Bacteria Lab Acknowledgement Test Added Test Added Test Added 03/01/23 03/01/23 03/02/23 11:15 12:58 06:26 WBC 4.76 RBC 4.33 Hgb 13.9 Hct 41.3 MCV 95 MCH 32 MCHC 34 Plt Count 167 INR 0.85 L VBG pH 7.279 L VBG pCO2 66 H* VBG pO2 23.5 L VBG HCO3 31 H Sodium 131 L Potassium 4.8 Chloride 102 Carbon Dioxide 30 BUN 16 Creatinine 0.9 Estimated Creat Clear 36.98 Estimated GFR 67 Glucose 93 Hemoglobin A1c Lactate Calcium 9.2 Ionized Calcium Mandi Phosphorus Magnesium Iron 94 TIBC 230 L % Saturation 41 Ferritin 128.0 Total Bilirubin 0.2 GGT AST 84 H ALT 62 H Alkaline Phosphatase 41 Total Creatine Kinase Troponin I 0.26 H* 0.18 H* C-Reactive Protein < 0.5 L NT-Pro-B Natriuret Pep 557 Total Protein 6.1 Albumin 3.5 Triglycerides Cholesterol LDL Cholesterol, Calc HDL Cholesterol Lipase 1338 H 25-OH Vitamin D Total Free T4 Urine Color Yellow Urine Appearance Clear Urine pH 6.0 Ur Specific [place] 1.015 Urine Protein Trace A Urine Glucose (UA) Negative Urine Ketones Trace A Urine Blood Negative Urine Nitrite Negative Urine Bilirubin Negative Urine Urobilinogen 0.2 Ur Leukocyte Esterase Negative Urine RBC 0-2 Urine WBC 0-2 Ur Squamous Epith Cells Few Other Sediment Moderate A Urine Bacteria None Lab Acknowledgement
[2023-03-02] MEDS: ASPIRIN 81 MG TABLET EC PO (09:40)
[2023-03-02] MEDS: CLOPIDOGREL 75 MG TABLET PO (09:40)
[2023-03-02] MEDS: METOPROLOL TARTRATE 25 MG TABLET 6.25 MG PO (09:41)
[2023-03-02] MEDS: POTASSIUM CHLORIDE 10 MEQ CAPSULE ER PO (09:41)
[2023-03-02] MEDS: IPRAT-ALBUT 0.5-2.5 MG/3 ML NEB 1 NEB IH ×3 (09:41→20:16)
[2023-03-02 12:05] LABS: HCO3 VBG 30 mmol/L (21-28); PCO2 VBG 58 mmHG (40-50); PO2 VBG 22.2 mmHG (25-47); pH VBG 7.322 (7.32-7.43)
[2023-03-02] MEDS: polyethylene glycoL 3350 17 GM PACK PO (14:34)
[2023-03-02] MEDS: 0.9 % SODIUM CHLORIDE 500 ML 500 ML IV (14:34)
[2023-03-02] MEDS: SENNOSIDES/DOCUSATE TABLET 1 TAB PO (14:34)
--- NOTE | 2023-03-02 15:14 | PC.NURSE ---
AFEBRILE. DENIES PAIN OR N/V. UP WITH A1, WALKER AND GAIT BELT AND TOLERATING ACTIVITY WITH REPORTS OF MILD SOB. O2 SATS 93-96%RA AT REST. O2 SATS DID DECREASE TO 86-87%RA WITH AMBULATION. PATIENT USING INCENTIVE SPIROMETER TO 1000 AND AEROBIKA. ENC PROTEIN AND FLUID INTAKE. URINE OUTPUT ONLY 50ML WITH SMALL INC IN PAD. DR. RAMOS UPDATED AND NORMAL SALINE 500ML BOLUS ORDERED AND ADMINISTERED. PATIENT HAS MULTIPLE SCABBED SORES TO BODY. PATIENT REPORTS SHE HASN'T BEEN ABLE TO SHOWER FOR ALMOST YEAR AND HER SKIN IS DRY AND ITCHY SO SHE FREQUENTLY SCRATCHES HER ARMS AND LEGS WHICH CAUSES THE SORES/SCABS.
[2023-03-02 18:36] LABS: Total T3 <20 ng/dL (80-200)
--- NOTE | 2023-03-02 18:36 | PC.NURSE ---
End of Shift: Patient pleasant and cooperative. Patient vitally stable, lungs clear and diminished, BS WNL, IV intact and SL. Patient denies pain. Patient 1 assist, walker, gb. Patient hypotensive this shift MD notified. Patient urinated 100 ml and tolerating regular diet. Patient laying comfortably in bed and encouraged to drink more water.
[2023-03-02] MEDS: ROSUVASTATIN CALCIUM 10 MG TABLET PO (20:16)
[2023-03-02] MEDS: SODIUM CHLORIDE 0.9 % (FLUSH) 10 ML SYRINGE 5 ML IVF (20:17)
[2023-03-03] VITALS (8 sets, daily range): BP systolic 111–138; BP diastolic 62–79; PULSE 55–67; RESP 20–24; TEMP 36.4–36.6; O2SAT 91–95
[2023-03-03] MEDS: IPRAT-ALBUT 0.5-2.5 MG/3 ML NEB 1 NEB IH ×4 (02:23→20:20)
[2023-03-03] MEDS: LEVOTHYROXINE 75 MCG TABLET 150 MCG PO (06:08)
[2023-03-03 07:06] LABS: HCO3 VBG 29 mmol/L (21-28); PCO2 VBG 58 mmHG (40-50); PO2 VBG 32.4 mmHG (25-47); pH VBG 7.314 (7.32-7.43)
--- NOTE | 2023-03-03 07:27 | PC.NURSE ---
: SBA with gb and walker. Calls appropriately. SOB.?Nonproductive cough encouraged aerobika use. O2 sats >90%. HR in the 50s, occasionally into the 40s when asleep, lowest HR noticed was 43. Tele = Go Arrhythmia.
[2023-03-03 07:33] LABS: Albumin* 3.3 g/dL (3.3-5.0)
[2023-03-03 07:34] LABS: Chloride* 102 mmol/L (96-114); Potassium* 4.1 mmol/L (3.6-5.1); Sodium* 130 mmol/L (135-149)
[2023-03-03 07:36] LABS: Aspartate Amino Transferase* 72 U/L (12-35); Bilirubin Total* 0.3 mg/dL (0.1-1.5); Carbon Dioxide* 29 mmol/L (20-32); Creatinine* 0.8 mg/dL (0.5-1.5); Est. Creatinine Clearance* 37.97; Estimated Glomerular Filt Rate 77 ml/min; Total Protein* 5.9 g/dL (6.0-8.3)
[2023-03-03 07:37] LABS: Alanine Aminotransferase* 53 U/L (4-35); Alkaline Phosphatase* 34 U/L (40-150); Blood Urea Nitrogen* 18 mg/dL (7-30); Calcium* 9.3 mg/dL (8.4-10.6); Gamma Glutamyl Transpeptidase* 17 U/L (8-55); Glucose* 86 mg/dL (60-115); Lipase* 230 U/L (23-300)
[2023-03-03 07:53] LABS: NT Pro B Type NatriureticPept* 328 pg/mL
[2023-03-03] MEDS: SENNOSIDES/DOCUSATE TABLET 1 TAB PO (09:24)
[2023-03-03] MEDS: ASPIRIN 81 MG TABLET EC PO (09:24)
[2023-03-03] MEDS: CLOPIDOGREL 75 MG TABLET PO (09:24)
[2023-03-03] MEDS: SODIUM CHLORIDE 0.9 % (FLUSH) 10 ML SYRINGE 5 ML IVF ×2 (09:24→20:21)
[2023-03-03] MEDS: polyethylene glycoL 3350 17 GM PACK PO (09:24)
[2023-03-03] MEDS: POTASSIUM CHLORIDE 10 MEQ CAPSULE ER PO (09:24)
--- NOTE | 2023-03-03 14:54 | P.IMPN_ITS ---
Progress Note: A&P Assessment and plan (1) Non-STEMI (non-ST elevated myocardial infarction): Problem details: -no chest pain or vital instability -echo ordered - reviewed. -ekg shows low voltage pattern and possible inferior infarct pattern -will give aspirin and plavix and order telemetry, trend troponin (improving) -assymptomatic bradycardia - will decrease beta junior to 6.25 mg of metoprolol bid. Final Impressions: 1. Normal left ventricular size, mildly increased wall thickness, normal global systolic function, calculated EF of 60 %. 2. Right ventricular cavity size is normal, global systolic RV function is normal. 3. Normal left atrium size. 4. The aortic valve is sclerotic, no stenosis and trivial regurgitation. 5. The mitral valve is moderate mitral annular calcification (posterior), trace mitral regurgitation. 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 7. Mild-moderate tricuspid regurgitation. 8. Normal estimated pulmonary pressures by tricuspid regurgitation velocity and right atrial pressure (21 mmHg plus RAP). 9. Small pericardial effusion. Status: Acute (2) Hypothyroidism: Problem details: noncompliant with supplementation Free T4 and total T3 undetectable typically on 88mcg. will do 7 days of 150mcg and then back to 88mcg. Status: Acute (3) COPD (chronic obstructive pulmonary disease): Problem details: -new dx (tobacco use, CT findings, CO2 retention) - chronic changes. -scheduled DuoNebs -RT to evaluate for bedside spirometry, pulmonary toilet, etc Status: Acute (4) Transaminitis: Problem details: -total bili and alk phos normal -AST/ALT elevated, but improving -crp normal -CT suggests acute choleycystitis -abd u/s ordered for f/u - likely nothing acute. can consider HIDA schedule as needed/clinically indicated. -I think this is likely from dehydration, NSTEMI Status: Acute (5) Protein-calorie malnutrition: Problem details: weight loss signficant in since 07/2020, 17lbs 15% of total body weight. increased with hydration; back to 108# Status: Acute (6) Elevated lipase: Problem details: soft belly. reassuring imaging. trend. Lipase back to normal Status: Acute (7) Generalized weakness: Problem details: PT/OT have worked with her today. using 4w walker but able to ambulate and do a couple of stairs. Status: Acute (8) Osteoporosis: Problem details: Vitamin-D level normal. Oral Calcium/Vit D ordered DEXA 01/04 Lumbar spine, -2.5 Femoral neck, -2.2 Left total hip, -2.8 Total hip, -2.7 FRAX RISK CALCULATION (USED FOR OSTEOPENIA ONLY): 10-year probability of major osteoporotic fracture: 25.3%. 10-year probability of hip fracture: 17.8%. IMPRESSION: Osteoporosis. Status: Acute (9) Vitamin D deficiency: Problem details: Normal Status: Acute (10) Hyperlipidemia: Problem details: presumbably off statin restart given NSTEMI during this hospitalization Status: Acute (11) Hypertension: Problem details: -holding HCTZ, would choose an ELAINE-inhibitor or increase her beta-junior if further antihypertensives are needed -weight loss, soft pressures on presentation Status: Acute (12) Keratoconjunctivitis of both eyes: Problem details: treated with Maxitrol drops in the past needs outpatient ophthalmology eval Status: Acute (13) Tobacco abuse: Problem details: -1/2 ppd. Status: Acute Subjective Date Seen: 03/03/23 Interval history: Daily Progress Note - Hospital Medicine Day #: 3 CC: NSTEMI, COPD, weakness, FTT, severe hypothyroidism OVERNIGHT UPDATES FROM STAFF & MED, LAB, IMAGING UPDATES -generally improving. -p.o. intake improved -patient took a shower this morning with OT assistance and evaluation. Weak, needing to sit, but no syncope or chest pain. Some mild shortness of breath. Vitals are stable. She is on room air. Satting 92%. Standing weight this morning to 108.9 lb Blood gas 7.3, persistent CO2 retention consistent with this new diagnosis of COPD Sodium is borderline. One hundred thirty. LFTs down trending. Troponin down trending. Lipase normal this morning Both free T4 and total T3 are undetectable Abdominal U/S: Mildly distended gallbladder with nonspecific wall thickening, but without cholelithiasis. Findings are equivocal for acute cholecystitis. Recommend correlation with localized physical examination, and laboratory values. Consider HIDA scan for further evaluation. No biliary obstruction. CT CAP: Trace pleural effusions Moderate COPD changes Dense aortic atherosclerosis without aneurysm Moderate constipation pattern in the distal colon Echo: Normal LV size, mild increased wall thickness. Normal global systolic function. EF 60%. Right ventricular cavity size is normal, global systolic RV function is normal. Moderate mitral annular calcification, posterior Tricuspid valve is myxomatous [id number] tricuspid regurg Normal estimated pulmonary pressures Small pericardial effusion Objective: Cachectic, profound ptosis Vitals: see above Lungs: Clear. Cardiac: S1S2. Disposition/Potential discharge - Patient expresses interest in assisted living transition. -I briefly discussed [facility], next door for assisted living either short- term or long-term -I presented her with jadyn ordered list of investigations if she was interested: 1. Priority is to correct her severe hypothyroidism 2. Ischemic workup for likely CAD. Recommended a stress echo and outpatient cardiology evaluation. 3. COPD guideline directed management. Spirometry, inhaled anticholinergic or LAMA and smoking cessation 4. Nutrition counseling with weight-bearing exercise to build mass, endurance -patient seems open to all of these ideas Total time is 35 minutes with greater than 50% spent in counseling and coordination of care. Exam Const: Vital Signs, click to edit/add: Vital Signs - 24 hr 03/02/23 15:00 03/02/23 15:00 03/02/23 15:00 Temperature Pulse Rate 52 L Pulse Rate [Pulse Oximeter] 56 L Respiratory Rate 22 Blood Pressure [Le ft Arm] Blood Pressure [Ri ght Arm] Pulse Oximetry 93 Oxygen Delivery Me thod 03/02/23 15:32 03/02/23 15:34 03/02/23 15:41 Temperature 97.5 F L Pulse Rate Pulse Rate [Pulse Oximeter] 57 L 56 L 56 L Respiratory Rate 22 Blood Pressure [Le ft Arm] 95/64 102/58 L Blood Pressure [Ri ght Arm] 97/48 L Pulse Oximetry 93 Oxygen Delivery Me thod Room Air 03/02/23 19:00 03/02/23 22:19 03/02/23 22:38 Temperature 97.8 F Pulse Rate 57 L Pulse Rate [Pulse Oximeter] 53 L Respiratory Rate 24 Blood Pressure [Le ft Arm] 128/66 Blood Pressure [Ri ght Arm] Pulse Oximetry 92 92 Oxygen Delivery Me thod Room Air 03/02/23 22:38 03/02/23 22:38 03/03/23 02:42 Temperature 97.9 F 97.9 F Pulse Rate Pulse Rate [Pulse Oximeter] 57 L 57 L 55 L Respiratory Rate 24 24 24 Blood Pressure [Le ft Arm] Blood Pressure [Ri ght Arm] 109/58 L 111/62 Pulse Oximetry 92 92 Oxygen Delivery Me thod Room Air Room Air 03/03/23 07:00 03/03/23 07:00 03/03/23 07:00 Temperature Pulse Rate 60 Pulse Rate [Pulse Oximeter] 60 Respiratory Rate 20 Blood Pressure [Le ft Arm] Blood Pressure [Ri ght Arm] Pulse Oximetry 94 Oxygen Delivery Me thod 03/03/23 09:29 03/03/23 11:10 Temperature 97.6 F 97.6 F Pulse Rate Pulse Rate [Pulse Oximeter] 60 60 Respiratory Rate 20 22 Blood Pressure [Le ft Arm] 128/79 Blood Pressure [Ri ght Arm] 138/68 Pulse Oximetry 94 93 Oxygen Delivery Me thod Room Air Room Air Labs Labs: Laboratory Results - last 24 hr 03/01/23 03/03/23 08:27 06:25 VBG pH 7.314 L VBG pCO2 58 H VBG pO2 32.4 VBG HCO3 29 H Sodium 130 L Potassium 4.1 Chloride 102 Carbon Dioxide 29 BUN 18 Creatinine 0.8 Estimated Creat Clear 37.97 Estimated GFR 77 Glucose 86 Calcium 9.3 Total Bilirubin 0.3 GGT 17 AST 72 H ALT 53 H Alkaline Phosphatase 34 L Troponin I 0.10 H* NT-Pro-B Natriuret Pep 328 Total Protein 5.9 L Albumin 3.3 Lipase 230 T3 <20 L
--- NOTE | 2023-03-03 18:13 | PC.NURSE ---
End of Shift: Patient pleasant and cooperative. Patient vitally stable, lungs clear/diminished, BS WNL, IV intact and SL. Patient denies pain. Patient 1 assist/walker/gb. Patient had 1 large formed BM today. Patient ordered breakfast and lunch, no dinner today, tolerating regular diet but gets full quickly. Patient ate a food about of breakfast but very little of lunch. Patient had 1.5 enlives today. Tele=NST/S
--- NOTE | 2023-03-03 18:16 | PC.NURSE ---
End of Shift: Patient pleasant and cooperative. Patient vitally stable, lungs clear/diminished, BS WNL, IV intact and SL. Patient SBA/walker/gb. Patient denies pain. Patient ate majority of breakfast but little of lunch, patient gets full quickly. Patient did not want dinner today due to being full, patient had 1.5 ensures today, and tolerating regular diet. Patient had 1 large BM today. Tele=NSR/SA. Patient had a shower today.
[2023-03-03] MEDS: ROSUVASTATIN CALCIUM 10 MG TABLET PO (20:20)
[2023-03-04] MEDS: IPRAT-ALBUT 0.5-2.5 MG/3 ML NEB 1 NEB IH ×4 (02:35→20:35)
[2023-03-04 03:00] VITALS: BP 130/63; PULSE 60; RESP 22; TEMP 36.4; O2SAT 93
[2023-03-04] MEDS: LEVOTHYROXINE 75 MCG TABLET 150 MCG PO (06:09)
--- NOTE | 2023-03-04 06:31 | PC.NURSE ---
19-07: pleasant and cooperative. SBA with gb and walker. Nonproductive cough, encouraging IS and aerobika use when pt awake, pt compliant and uses both indep as well. VSS. Tele = NSR. Mepi to Coccyx. Mepi to RLE over scattered scabs that started bleeding.
[2023-03-04 06:40] LABS: HCO3 VBG 32 mmol/L (21-28); PCO2 VBG 56 mmHG (40-50); PO2 VBG 29.7 mmHG (25-47); pH VBG 7.363 (7.32-7.43)
[2023-03-04 07:00] VITALS: BP 125/66; PULSE 58; PULSE 68; RESP 20; RESP 22; TEMP 36.6; O2SAT 87
[2023-03-04 07:06] LABS: Chloride* 99 mmol/L (96-114); Sodium* 131 mmol/L (135-149)
[2023-03-04 07:09] LABS: Carbon Dioxide* 32 mmol/L (20-32); Creatinine* 0.7 mg/dL (0.5-1.5); Est. Creatinine Clearance* 38.53; Estimated Glomerular Filt Rate 90 ml/min; Lipase* 153 U/L (23-300)
[2023-03-04 07:10] LABS: Blood Urea Nitrogen* 15 mg/dL (7-30); Glucose* 79 mg/dL (60-115)
[2023-03-04 07:24] LABS: Iron* 80 ug/dL (37-170)
[2023-03-04 07:33] LABS: Troponin I* 0.09 ng/mL (0.01-0.04)
[2023-03-04 07:34] LABS: Percent Iron Saturation 34 % (20-50); Total Iron Binding Capacity 235 ug/dL (265-497)
[2023-03-04] MEDS: polyethylene glycoL 3350 17 GM PACK PO (09:28)
[2023-03-04] MEDS: ASPIRIN 81 MG TABLET EC PO (09:28)
[2023-03-04] MEDS: CLOPIDOGREL 75 MG TABLET PO (09:28)
[2023-03-04] MEDS: POTASSIUM CHLORIDE 10 MEQ CAPSULE ER PO (09:28)
[2023-03-04] MEDS: SENNOSIDES/DOCUSATE TABLET 1 TAB PO (09:29)
[2023-03-04] MEDS: SODIUM CHLORIDE 0.9 % (FLUSH) 10 ML SYRINGE 5 ML IVF ×2 (09:29→20:35)
[2023-03-04 11:00] VITALS: BP 125/65; PULSE 82; RESP 21; O2SAT 88
--- NOTE | 2023-03-04 12:04 | P.IMPN_ITS ---
Progress Note: A&P Assessment and plan (1) Non-STEMI (non-ST elevated myocardial infarction): Problem details: - no chest pain, VSS - TTE completed, results below - EKG exhibits low voltage pattern and possible inferior infarct pattern - will give aspirin and plavix and order telemetry, trend troponin (improving) - given asymptomatic bradycardia, decreased beta junior to 6.25 mg of metoprolol bid. Final Impressions: 1. Normal left ventricular size, mildly increased wall thickness, normal global systolic function, calculated EF of 60 %. 2. Right ventricular cavity size is normal, global systolic RV function is normal. 3. Normal left atrium size. 4. The aortic valve is sclerotic, no stenosis and trivial regurgitation. 5. The mitral valve is moderate mitral annular calcification (posterior), trace mitral regurgitation. 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 7. Mild-moderate tricuspid regurgitation. 8. Normal estimated pulmonary pressures by tricuspid regurgitation velocity and right atrial pressure (21 mmHg plus RAP). 9. Small pericardial effusion. Status: Acute (2) Hypothyroidism: Problem details: - recently stopped medications, normal TSH in 2021 - Free T4 and total T3 undetectable - typically on 88mcg; will give 7 days of 150mcg and then back to 88mcg Status: Acute (3) COPD (chronic obstructive pulmonary disease): Problem details: - new dx (tobacco use, CT findings, CO2 retention) - chronic changes - scheduled DuoNebs - RT following Status: Acute (4) Transaminitis: Problem details: - total bili and alk phos normal - AST/ALT elevated, but improving - CT suggests acute cholecystitis; abd u/s ordered for f/u - nothing acute. can consider HIDA schedule as needed/clinically indicated (patient overall asymptomatic) - I think this is likely from dehydration, NSTEMI, TR Status: Acute (5) Protein-calorie malnutrition: Problem details: - weight loss signficant in since 07/2020, 17lbs 15% of total body weight. increased with hydration; back to 108# Status: Acute (6) Generalized weakness: Problem details: - working with therapies, SNF recommended upon discharge Status: Acute (7) Osteoporosis: Problem details: Vitamin-D level normal. Oral Calcium/Vit D ordered DEXA 01/04 Lumbar spine, -2.5 Femoral neck, -2.2 Left total hip, -2.8 Total hip, -2.7 FRAX RISK CALCULATION (USED FOR OSTEOPENIA ONLY): 10-year probability of major osteoporotic fracture: 25.3%. 10-year probability of hip fracture: 17.8%. IMPRESSION: Osteoporosis. Status: Acute (8) Vitamin D deficiency: Problem details: Normal Status: Acute (9) Hyperlipidemia: Problem details: - restart statin given NSTEMI during this hospitalization Status: Acute (10) Hypertension: Problem details: - holding HCTZ, would choose an ELAINE-inhibitor or increase her beta-junior if further antihypertensives are needed - weight loss, soft pressures on presentation Status: Acute (11) Keratoconjunctivitis of both eyes: Problem details: - treated with Maxitrol drops in the past - needs outpatient ophthalmology eval - expect ptosis to improve with treated thyroid disease Status: Acute (12) Tobacco abuse: Problem details: -1/2 ppd. Status: Acute Plan - per above - Plavix, ASA, ambulation for ppx - to SNF when bed available Subjective Date Seen: 03/04/23 Interval history: Kelly continues to feel a little wimpy, no pain concerns. Working well with therapies and interested in SNF placement upon discharge. Tolerating medications. Labs continue to exhibit improvement. No other concerns for hospitalist team. Exam Narrative: Exam Narrative: GEN: Alert and sitting comfortably in bedside chair, answering questions appropriately HEENT: + ptosis bilaterally of lower eyelids, EOMIs bilaterally, no scleral icterus CV: RRR, + systolic murmur R: LCTA bilaterally without concerning wheezing Ext: 2+ edema BLE, symmetric Skin: No concerning skin lesions or rashes on exposed skin Neuro: Nonfocal Psych: Appropriate Const: Vital Signs, click to edit/add: Vital Signs - 24 hr 03/03/23 15:00 03/03/23 15:00 03/03/23 15:00 Temperature 97.6 F Pulse Rate 67 Pulse Rate [Pulse Oximeter] 66 Respiratory Rate 24 Blood Pressure [Ri ght Arm] 137/62 Pulse Oximetry 92 92 Oxygen Delivery Me thod Room Air 03/03/23 15:00 03/03/23 19:00 03/03/23 23:00 Temperature 97.9 F Pulse Rate Pulse Rate [Pulse Oximeter] 66 65 Respiratory Rate 24 24 Blood Pressure [Ri ght Arm] 118/62 Pulse Oximetry 94 95 Oxygen Delivery Me thod Room Air 06/18/23 23:00 03/03/23 23:36 03/04/23 03:00 Temperature 97.9 F 97.6 F Pulse Rate 59 L Pulse Rate [Pulse Oximeter] 62 60 Respiratory Rate 20 22 Blood Pressure [[facility] Arm] 137/68 130/63 Pulse Oximetry 91 93 Oxygen Delivery Me thod Room Air Room Air 03/04/23 07:00 03/04/23 07:00 03/04/23 07:00 Temperature 97.8 F Pulse Rate Pulse Rate [Pulse Oximeter] 68 68 Respiratory Rate 22 20 Blood Pressure [[facility] Arm] 125/66 Pulse Oximetry 87 L 87 L Oxygen Delivery Me thod Room Air Labs Labs: Laboratory Results - last 24 hr 03/04/23 06:27 VBG pH 7.363 VBG pCO2 56 H VBG pO2 29.7 VBG HCO3 32 H Sodium 131 L Potassium 4.0 Chloride 99 Carbon Dioxide 32 BUN 15 Creatinine 0.7 Estimated Creat Clear 38.53 Estimated GFR 90 Glucose 79 Calcium 9.0 Iron 80 TIBC 235 L % Saturation 34 Ferritin 109.0 Troponin I 0.09 H* Lipase 153
--- NOTE | 2023-03-04 13:10 | NUTR.NU ---
RDN visited with patient in room to follow-up this afternoon. Patient states that her appetite is good. Per farmworker field crop, patient ate 75% of breakfast this morning consisting of a cheese and ham omelet and an nepali muffin with jelly. Patient has been consuming scattered amounts 0-100%, averaging ~75% of meals since admission per farmworker field crop. No intakes recorded of ONS. Patient reports liking the ONS BID and has been drinking 100% per patient report. RDN will continue with current supplement regimen per patient request. Per wt records, patient's weight is up ~11lbs since admission with a current wt at 110lbs on 03/04/23 and an admission wt of 99lbs on 03/01/23. Wt gain possibly from dehydration on admission. RDN will continue to monitor p.o. intakes, weight, ONS acceptance, and lab values.
[2023-03-04] MEDS: ALBUTEROL INHALER 2 PUFF IH (13:24)
--- NOTE | 2023-03-04 14:39 | PC.SOCIAL ---
Discharge plan: Met with pt regarding d/c plan. Pt is requesting placement for short term rehab in a snf facility. Pt states she has friends and family in the [place] area and would prefer a facility in that area. Called [facility] ([facility]) and [facility]. Left messages at both facilities requesting calls back regarding bed availability. Faxed information to the fax number provided on the outgoing message at [facility] of [phone]. Awaiting calls back regarding bed availability. Called [facility] vulnerable adult worker, Cherise Naranjo and left message requesting call back. cotton farmworker to follow up as needed.
[2023-03-04 15:00] VITALS: BP 121/71; PULSE 64; PULSE 65; RESP 24; TEMP 36.6; O2SAT 94
--- NOTE | 2023-03-04 15:04 | CRLHL7_ITS ---
For Patients: As a result of the Century Cures Act, medical imaging exams and procedure reports are released immediately into your electronic medical record. You may view this report before your referring provider. If you have questions, please contact your health care provider. INDICATION: Dyspnea. TECHNIQUE: Chest 1 view. COMPARISON: None. FINDINGS: Cardiovascular and mediastinum: Cardiomediastinal silhouette is within normal limits. Lungs and pleural spaces: The subtle bilateral reticular changes likely senescent scarring. Possible small bilateral pleural effusions. No pneumothorax identified. Bones and soft tissues: Unremarkable. IMPRESSION: No acute cardiopulmonary process identified. No significant interval change. Dictated by Logan Garg MD @ 03/04/2023 3:53:44 PM (Electronically Signed)
[2023-03-04] MEDS: NICOTINE 7 MG PATCH 1 PATCH TRANSDERMA (16:03)
[2023-03-04 19:30] VITALS: BP 133/64; PULSE 66; RESP 24; TEMP 36.6; O2SAT 94
--- NOTE | 2023-03-04 19:31 | PC.NURSE ---
Nursing Care Hours: [id number] Pt this shift calm and cooperative with cares. SOB even at rest, pt using pursed lip breathing. RUL anterior diminished compared to L in morning, spO2 at 86-88% RA. Later in shift after breathing treatments and PRN Albuterol, bilat LS clear and 94% RA. Moist cough, non productive. Pt c/o feeling cold and just not well. Chest x-ray done, see diagnostics. C/o headache relieved by a [employer]/caffeine. Eating about 50% of meals, Ensures offered and 100% taken. SB assist to BR. Nicotine patch to L arm. Tele shows NSR and NSR with PAC's.
[2023-03-04] MEDS: ROSUVASTATIN CALCIUM 10 MG TABLET PO (20:34)
[2023-03-04 23:00] VITALS: BP 137/76; PULSE 62; PULSE 68; RESP 20; O2SAT 93
[2023-03-05] VITALS (9 sets, daily range): BP systolic 133–182; BP diastolic 64–92; PULSE 61–75; RESP 18–28; TEMP 36.6–36.7; O2SAT 88–94
[2023-03-05] MEDS: IPRAT-ALBUT 0.5-2.5 MG/3 ML NEB 1 NEB IH ×4 (04:00→21:20)
[2023-03-05] MEDS: LEVOTHYROXINE 75 MCG TABLET 150 MCG PO (06:53)
[2023-03-05 07:45] LABS: Chloride* 97 mmol/L (96-114); Potassium* 3.5 mmol/L (3.6-5.1); Sodium* 132 mmol/L (135-149)
[2023-03-05 07:47] LABS: Creatinine* 0.6 mg/dL (0.5-1.5); Est. Creatinine Clearance* 39.33; Estimated Glomerular Filt Rate 94 ml/min
[2023-03-05 07:48] LABS: Alkaline Phosphatase* 40 U/L (40-150); Aspartate Amino Transferase* 72 U/L (12-35); Bilirubin Total* 0.4 mg/dL (0.1-1.5); Blood Urea Nitrogen* 12 mg/dL (7-30); Carbon Dioxide* 34 mmol/L (20-32); Glucose* 84 mg/dL (60-115); Total Protein* 7.1 g/dL (6.0-8.3)
[2023-03-05 07:49] LABS: Alanine Aminotransferase* 54 U/L (4-35)
--- NOTE | 2023-03-05 08:16 | PC.NURSE ---
[id number] Shift Summary? [address]. 77 NSTEMI, COPD, weakness, FTT, severe hypothyroidism? Hx: Keratoconjunctivitis, Depression w/ anxiety, Tobacco use, Osteoporosis, Vitamin D deficiency, Psoriasis, HTN? Pt did okay overnight. Up q1 hr to void 100-150mL. SOB after ambulation but sating well. Declined albuterol or NC and recovered within a minute or two. Audible grunts and groans during recovery. Denies pain or nausea. Edema bilat, elevating with pillow. Requested SCDs and TEDs for pt. States no noticeable difference after Nebs, but is also at 750mL for IS. On room air. Coughs after treatments. Diminished lung sounds. Steady gait, SBA with walker.
[2023-03-05] MEDS: ASPIRIN 81 MG TABLET EC PO (09:48)
[2023-03-05] MEDS: CLOPIDOGREL 75 MG TABLET PO (09:48)
[2023-03-05] MEDS: FUROSEMIDE 40 MG TABLET 20 MG PO (09:49)
[2023-03-05] MEDS: polyethylene glycoL 3350 17 GM PACK PO (09:49)
[2023-03-05] MEDS: SODIUM CHLORIDE 0.9 % (FLUSH) 10 ML SYRINGE 5 ML IVF ×2 (09:49→21:21)
[2023-03-05] MEDS: SENNOSIDES/DOCUSATE TABLET 1 TAB PO (09:49)
[2023-03-05] MEDS: POTASSIUM BICARB 25 MEQ EFFERVESCENT TAB PO (09:50)
[2023-03-05] MEDS: POTASSIUM CHLORIDE 10 MEQ CAPSULE ER 20 MEQ PO (09:52)
--- NOTE | 2023-03-05 12:08 | PM.IMPN1 ---
Progress Note: A&P Assessment and plan (1) Non-STEMI (non-ST elevated myocardial infarction): Problem details: - no chest pain, VSS - TTE completed, results below - EKG exhibits low voltage pattern and possible inferior infarct pattern - on aspirin and plavix, troponin peaked @ 0.29 - given asymptomatic bradycardia, decreased beta junior to 6.25 mg of metoprolol BID - low dose Lasix for edema Final Impressions: 1. Normal left ventricular size, mildly increased wall thickness, normal global systolic function, calculated EF of 60 %. 2. Right ventricular cavity size is normal, global systolic RV function is normal. 3. Normal left atrium size. 4. The aortic valve is sclerotic, no stenosis and trivial regurgitation. 5. The mitral valve is moderate mitral annular calcification (posterior), trace mitral regurgitation. 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 7. Mild-moderate tricuspid regurgitation. 8. Normal estimated pulmonary pressures by tricuspid regurgitation velocity and right atrial pressure (21 mmHg plus RAP). 9. Small pericardial effusion. Status: Acute (2) Hypothyroidism: Problem details: - recently stopped medications, normal TSH in 2021 - Free T4 and total T3 undetectable - typically on 88mcg; will give 7 days of 150mcg and then back to 88mcg Status: Acute (3) COPD (chronic obstructive pulmonary disease): Problem details: - new dx (tobacco use, CT findings, CO2 retention) - chronic changes - scheduled DuoNebs - RT following Status: Acute (4) Transaminitis: Problem details: - total bili and alk phos normal - AST/ALT elevated, but improving - CT suggests acute cholecystitis; abd u/s ordered for f/u - nothing acute. can consider HIDA as needed/clinically indicated (patient overall asymptomatic) - most likely 2/2 dehydration, NSTEMI, TR Status: Acute (5) Protein-calorie malnutrition: Problem details: - weight loss signficant in since 07/2020, 17lbs 15% of total body weight. increased with hydration; back to 108# Status: Acute (6) Generalized weakness: Problem details: - working with therapies, SNF recommended upon discharge Status: Acute (7) Osteoporosis: Problem details: Vitamin-D level normal. Oral Calcium/Vit D ordered DEXA 01/04 Lumbar spine, -2.5 Femoral neck, -2.2 Left total hip, -2.8 Total hip, -2.7 FRAX RISK CALCULATION (USED FOR OSTEOPENIA ONLY): 10-year probability of major osteoporotic fracture: 25.3%. 10-year probability of hip fracture: 17.8%. IMPRESSION: Osteoporosis. Status: Acute (8) Hyperlipidemia: Problem details: - restart statin given NSTEMI during this hospitalization Status: Acute (9) Hypertension: Problem details: - On Metoprolol, Lasix added 03/05 - weight loss, soft pressures on presentation Status: Acute (10) Keratoconjunctivitis of both eyes: Problem details: - treated with Maxitrol drops in the past - needs outpatient ophthalmology eval - expect ptosis to improve with treated thyroid disease Status: Acute (11) Tobacco abuse: Problem details: -/2 ppd Status: Acute Plan - continue meds and cares per above - to SNF tomorrow Subjective Date Seen: 03/05/23 Interval history: Kelly has noted more ankle edema this morning, no CP. Continuing to tolerate medications and therapies. No other concerns for hospitalist team. She has been accepting at a SNF for discharge tomorrow. Exam Narrative: Exam Narrative: GEN: Alert and oriented, laying comfortably in bed HEENT: + lower eyelid ptosis (unchanged), no scleral icterus CV: sinus arrhythmia R: LCTA bilaterally without concerning wheezing, fine rales bilateral bases Ext: wwp, 1+ edema B ankles Skin: + vitiligo, most notable on back, no acute concerning skin lesions on exposed skin Neuro: Nonfocal Psych: Appropriate Const: Vital Signs, click to edit/add: Vital Signs - 24 hr 03/04/23 15:00 03/04/23 15:00 03/04/23 15:00 Temperature 97.9 F Pulse Rate Pulse Rate [Pulse Oximeter] 64 64 Respiratory Rate 24 24 Blood Pressure [Le ft Arm] Blood Pressure [Ri ght Arm] 121/71 Pulse Oximetry 94 94 Oxygen Delivery Me thod Room Air 03/04/23 15:00 03/04/23 19:30 03/04/23 23:00 Temperature 97.9 F Pulse Rate 65 Pulse Rate [Pulse Oximeter] 66 62 Respiratory Rate 24 20 Blood Pressure [Le ft Arm] Blood Pressure [Ri ght Arm] 133/64 137/76 Pulse Oximetry 94 93 Oxygen Delivery Me thod Room Air Room Air 03/04/23 23:00 03/04/23 23:00 03/05/23 01:49 Temperature Pulse Rate 61 Pulse Rate [Pulse Oximeter] 68 Respiratory Rate 20 Blood Pressure [Le ft Arm] Blood Pressure [Ri ght Arm] Pulse Oximetry 93 Oxygen Delivery Me thod 03/05/23 04:00 03/05/23 04:26 03/05/23 07:00 Temperature Pulse Rate Pulse Rate [Pulse Oximeter] 66 Respiratory Rate 28 H 20 Blood Pressure [Le ft Arm] Blood Pressure [Ri ght Arm] 182/92 H 154/78 H Pulse Oximetry 92 93 Oxygen Delivery Ca thod Room Air 03/05/23 07:00 03/05/23 08:00 Temperature 97.8 F Pulse Rate Pulse Rate [Pulse Oximeter] 67 67 Respiratory Rate 20 20 Blood Pressure [Le ft Arm] 135/92 H Blood Pressure [Ri ght Arm] Pulse Oximetry 93 Oxygen Delivery Ca thod Room Air Labs Labs: Laboratory Results - last 24 hr 03/05/23 06:50 Sodium 132 L Potassium 3.5 L Chloride 97 Carbon Dioxide 34 H BUN 12 Creatinine 0.6 Estimated Creat Clear 39.33 Estimated GFR 94 Glucose 84 Calcium 10.0 Total Bilirubin 0.4 AST 72 H ALT 54 H Alkaline Phosphatase 40 Total Protein 7.1 Albumin 4.0
--- NOTE | 2023-03-05 14:26 | PC.SOCIAL ---
Pt. has been accepted to [facility] in [place] for tomorrow. Pt. wants medical transport and has signed consent to privately pay for non-emergency EMS. Orders are to be faxed to [phone] and nurse report called in at [phone]. A message was left with Cherise Naranjo at [facility] on where pt. will discharge to per request for case management. Cherise was updated that pt. has no clothes for the SNF.
[2023-03-05] MEDS: NICOTINE 7 MG PATCH 1 PATCH TRANSDERMA (15:10)
[2023-03-05] MEDS: ROSUVASTATIN CALCIUM 10 MG TABLET PO (21:20)
--- NOTE | 2023-03-06 00:10 | PC.NURSE ---
Nursing Care Hours: [id number] Pt this shift calm and cooperative with cares. Motivated to work on walking and being more active today. Discussed grouping activities and allowing rest time in between. Pt was able to take a shower and do oral cares independently with assist in set up and SB for safety. Lotion applied to back and lower extremities. Even after oral cares, pt still has pungent breath. Dentures placed in cleaning solution at HS. Walked rodriges x2 about 300 ft each. Pt tolerated well and able to hold conversation. Pt encouraged by increased activity and admits to telegraphic typewriter operator that she feels anxious about starting the activity but once it is done finds it be not be as bad. Nicotine patch to R shoulder. Discussed smoking cessation and pt admits she loves the whole process of smoke too much and states no one can make her quit. Pt taking Ensure clears, eating about 50% of meals.
[2023-03-06 00:40] VITALS: PULSE 72; RESP 20; O2SAT 93
[2023-03-06 00:45] VITALS: BP 125/75; PULSE 72; RESP 20; TEMP 36.5; O2SAT 93
[2023-03-06 02:50] VITALS: BP 134/75; PULSE 84; RESP 22; TEMP 37.2; O2SAT 93
[2023-03-06] MEDS: IPRAT-ALBUT 0.5-2.5 MG/3 ML NEB 1 NEB IH ×2 (02:52→08:36)
[2023-03-06 06:53] LABS: Basophils Percent Auto 0.8 % (0.0-3.0); Eosinophils Percent Auto 7.3 % (0.0-7.0); Hematocrit 36.5 % (33.0-51.0); Hemoglobin* 12.7 gm/dL (12.0-16.0); Lymphocytes Percent Auto 26.1 % (20-44); Mean Corpuscular HGB Conc 35 gm/dL (32-36); Mean Corpuscular Hemoglobin 33 pg (26-34); Mean Corpuscular Volume 93 fL (80-100); Monocytes Percent Auto 7.3 % (0.0-11.0); Neutrophils Percent Auto 58.5 % (42.0-72.0); Platelet Count* 165 K/uL (140-440); RDW Coefficient of Variation % 14.3 % (11.5-15.5); Red Blood Count 3.91 m/uL (4.00-5.20); White Blood Count* 3.95 K/uL (4.50-11.00)
[2023-03-06] MEDS: LEVOTHYROXINE 75 MCG TABLET 150 MCG PO (06:57)
[2023-03-06 07:00] VITALS: O2SAT 93
[2023-03-06 07:02] LABS: Chloride* 99 mmol/L (96-114); Potassium* 3.4 mmol/L (3.6-5.1); Sodium* 134 mmol/L (135-149)
[2023-03-06 07:05] LABS: Creatinine* 0.7 mg/dL (0.5-1.5); Est. Creatinine Clearance* 39.33; Estimated Glomerular Filt Rate 90 ml/min
[2023-03-06 07:06] LABS: Blood Urea Nitrogen* 18 mg/dL (7-30); Calcium* 9.1 mg/dL (8.4-10.6); Carbon Dioxide* 30 mmol/L (20-32); Glucose* 130 mg/dL (60-115)
[2023-03-06 07:10] LABS: Slide Review Reflex No
--- NOTE | 2023-03-06 07:36 | PC.NURSE ---
Pt alert and oriented x3. Afebrile. Pt denies pain, chest pain, and N/V.?It is noted that pt has SOB with exertion and at rest with shallow breaths. Pt has Mepilex?s on her coccyx and right squires, dressing are CDI.?Pt is up SBA with walker and gait belt. Pt is tolerating a regular diet. Pt was up to the bathroom x5 throughout night voiding around 200 ml each time. Pt slept intermittently throughout most of night. ?
[2023-03-06] MEDS: SENNOSIDES/DOCUSATE TABLET 1 TAB PO (08:34)
[2023-03-06] MEDS: ASPIRIN 81 MG TABLET EC PO (08:34)
[2023-03-06] MEDS: CLOPIDOGREL 75 MG TABLET PO (08:34)
[2023-03-06] MEDS: polyethylene glycoL 3350 17 GM PACK PO (08:35)
[2023-03-06] MEDS: POTASSIUM CHLORIDE 10 MEQ CAPSULE ER 20 MEQ PO (08:35)
[2023-03-06] MEDS: FUROSEMIDE 40 MG TABLET 20 MG PO (08:35)
[2023-03-06 08:46] VITALS: BP 139/81; PULSE 64; RESP 20; TEMP 36.5; O2SAT 93
--- NOTE | 2023-03-06 09:13 | P.DS_ITS ---
DS: Providers Provider Date Seen: 03/06/23 Date of admission: 03/01/23 09:21 Primary care physician: Not a Local Provider Admitting Clinician: Teto Flores MD Consults: OT, PT, RT, SW, Nutrition Attending Physician on discharge: Kay Lentz MD Date of Discharge: 03/06/23 DS: Diagnosis Discharge Diagnosis (1) Non-STEMI (non-ST elevated myocardial infarction): Status: Acute Problem details: - no chest pain, VSS throughout stay - TTE completed, results below - EKG exhibits low voltage pattern and possible inferior infarct pattern - troponin peaked @ 0.29 - discharge medications: ASA, Metoprolol, Lasix, statin - recommend PCP upon discharge to discuss goals of care/Cardiology referral Final Impressions: 1. Normal left ventricular size, mildly increased wall thickness, normal global systolic function, calculated EF of 60 %. 2. Right ventricular cavity size is normal, global systolic RV function is normal. 3. Normal left atrium size. 4. The aortic valve is sclerotic, no stenosis and trivial regurgitation. 5. The mitral valve is moderate mitral annular calcification (posterior), trace mitral regurgitation. 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 7. Mild-moderate tricuspid regurgitation. 8. Normal estimated pulmonary pressures by tricuspid regurgitation velocity and right atrial pressure (21 mmHg plus RAP). 9. Small pericardial effusion. (2) Hypothyroidism: Status: Acute Problem details: - recently stopped medications, normal TSH in 2021 - Free T4 and total T3 undetectable - typically on 88mcg; treated wiht 6 days of 150mcg, back to 88mcg on d/c - repeat TSH 3-4 weeks (3) COPD (chronic obstructive pulmonary disease): Status: Acute Problem details: - new dx (tobacco use, CT findings, CO2 retention) - did not require supplemental oxygen - scheduled DuoNebs - RT following (4) Transaminitis: Status: Acute Problem details: - total bili and alk phos normal - AST/ALT elevated, improved during stay - CT suggests acute cholecystitis; abdominal ultrasound exhibited nothing acute; consider HIDA as needed/clinically indicated (patient overall asymptomatic) - most likely 2/2 dehydration, NSTEMI, TR (5) Protein-calorie malnutrition: Status: Acute Problem details: - weight loss signficant in since 07/2020, 17lbs 15% of total body weight. increased with hydration; back to 108# (6) Generalized weakness: Status: Acute Problem details: - working with therapies, SNF recommended upon discharge (7) Osteoporosis: Status: Acute Problem details: Vitamin-D level normal. Oral Calcium/Vit D ordered DEXA 01/04 Lumbar spine, -2.5 Femoral neck, -2.2 Left total hip, -2.8 Total hip, -2.7 FRAX RISK CALCULATION (USED FOR OSTEOPENIA ONLY): 10-year probability of major osteoporotic fracture: 25.3%. 10-year probability of hip fracture: 17.8%. IMPRESSION: Osteoporosis. (8) Keratoconjunctivitis of both eyes: Status: Acute Problem details: - treated with Maxitrol drops in the past - needs outpatient ophthalmology eval - expect ptosis to improve with treated thyroid disease (9) Tobacco abuse: Status: Acute Problem details: -1/2 ppd, tolerated nicotine patch during stay DS: Summary Hospital Course Hospital Course: Kelly is a 77 yo female who was admitted to the hospital on 03/01 for weakness and failure to thrive, in the setting of recent discontinuation of all home medications. She was found to have a TSH >100, elevated troponin, elevated LFTs, CO2 retention and hyperinflation on imaging c/w COPD. TTE obtained with reassuring results (above), and rhythm remained reassuring on telemetry. Patient did not have chest pain during stay. Troponin peaked at 0.29; discharging on Metoprolol, ASA, low dose Lasix + Potassium. LFTs trended downward without abdominal pain. Imaging was initially concerning for acute cholecystitis, followup imaging inconclusive. Patient remained pain free, consider outpatient HIDA scan if symptomatic. She was seen by RT and started on Duonebs for COPD, remaining stable on RA. Her home Synthroid was restarted and patient was followed by therapies with discharge to SNF recommended. Patient was medically appropriate for d/c to SNF on 03/06 with close monitoring of TSH and BMP. She will see a new PCP upon SNF discharge. Status at Discharge Functional status at discharge: uses cane/walker Overall status at discharge: patient is progressing back to baseline Time Spent with Patient Time attestation: Total time spent providing and/or coordinating discharge services: Time spent: Greater than 30 minutes Specific discharge activities: Medication reconciliation, patient education Exam Narrative: Exam Narrative: GEN: Alert and oriented, sitting comfortably in bedside chair HEENT: Bilateral lower lid ptosis is stable, EOMIs bilaterally CV: Sinus arrythmia R: LCTA bilaterally without concerning wheezing Ext: wwp, trace BLE edema Neuro: No focal deficits Psych: Appropriate Const: Vital Signs, click to edit/add: Vital Signs - 24 hr 03/05/23 12:00 03/05/23 15:00 03/05/23 15:00 Temperature Pulse Rate [Pulse Oximeter] 67 71 Respiratory Rate 18 28 H Blood Pressure [Le ft Arm] 134/66 Blood Pressure [Ri ght Arm] Pulse Oximetry 94 88 Oxygen Delivery Me thod Room Air 03/05/23 16:00 03/05/23 20:00 03/06/23 00:40 Temperature 98.1 F Pulse Rate [Pulse Oximeter] 71 75 Respiratory Rate 28 H 22 Blood Pressure [Le ft Arm] 133/64 Blood Pressure [Ri ght Arm] 139/72 Pulse Oximetry 88 93 93 Oxygen Delivery Me thod Room Air Room Air 03/06/23 00:40 03/06/23 00:45 03/06/23 02:50 Temperature 97.7 F 98.9 F Pulse Rate [Pulse Oximeter] 72 72 84 Respiratory Rate 20 20 22 Blood Pressure [Le ft Arm] 125/75 Blood Pressure [Ri ght Arm] 134/75 Pulse Oximetry 93 93 Oxygen Delivery Me thod Room Air Room Air 03/06/23 08:46 Temperature 97.7 F Pulse Rate [Pulse Oximeter] 64 Respiratory Rate 20 Blood Pressure [Le ft Arm] 139/81 Blood Pressure [Ri ght Arm] Pulse Oximetry 93 Oxygen Delivery Me thod Room Air DS: Data Data Completed and Pending Labs on day of discharge: Labs from last 24 hours 03/06/23 06:03 WBC 3.95 L RBC 3.91 L Hgb 12.7 Hct 36.5 MCV 93 MCH 33 MCHC 35 RDW Coeff of Neptali 14.3 Plt Count 165 Neut % (Auto) 58.5 Lymph % (Auto) 26.1 Gaines % (Auto) 7.3 Eos % (Auto) 7.3 H Baso % (Auto) 0.8 Neut # (Auto) 2.30 Lymph # (Auto) 1.00 Gaines # (Auto) 0.30 Eos # (Auto) 0.30 Baso # (Auto) 0.00 Sodium 134 L Potassium 3.4 L Chloride 99 Carbon Dioxide 30 BUN 18 Creatinine 0.7 Estimated Creat Clear 39.33 Estimated GFR 90 Glucose 130 H Calcium 9.1 Discharge Plan Discharge Disposition: [facility] Date of Admission: 03/01/23 09:21 Attending Provider on Discharge: Kay Lentz Primary Care Provider: Provider,Not a Local Condition: Improved Anticipated Discharge Date/Time: 03/06/23 10:30 Discharge Medications: New furosemide 40 mg Tablet 20 mg PO DAILY@0800 Qty: 30 0RF Rx Instructions: may substitute 20mg tabs if easier than cutting 40mg tabs in half potassium chloride 10 mEq Capsule, Extended Release 20 meq PO DAILY Qty: 60 0RF ipratropium-albuterol 0.5 mg-3 mg(2.5 mg base)/3 mL Solution For Nebulization 3 ml inhalation Q6H Qty: 180 0RF sennosides-docusate sodium [Stool Softener-Laxative] 8.6-50 mg Tablet 1 tab PO DAILY Qty: 30 0RF aspirin 81 mg Tablet,Delayed Release (Dr/Ec) 81 mg PO DAILY Qty: 30 0RF nicotine 7 mg/24 hr Patch 24 Hour 1 patch transdermal Q24H Qty: 14 0RF metoprolol tartrate 25 mg Tablet 6.25 mg PO BID Qty: 30 0RF calcium carbonate-vitamin D3 [Oyster Shell Calcium-Vit D3] 500 mg-5 mcg (200 unit) Tablet 1 tab PO BID Qty: 60 0RF Continued rosuvastatin 10 mg tablet 10 mg PO HS levothyroxine 88 mcg tablet 88 mcg PO DAILY risedronate 150 mg tablet 150 mg PO Q28D Discontinued hydrochlorothiazide 25 mg tablet 25 mg PO DAILY potassium chloride 10 mEq tablet extended release 10 meq PO DAILY Discharge Orders: Discharge Order (Routine); Ordered 03/06/23 Ordered By: Kay Lentz Additional Instructions: After your discharge from SNF, make an appointment to establish care with a new PCP to go over your medications. Consider Dr. Ritter in [place] or Dr. Urena at [facility] in [place]. Activity Level: Activity as Tolerated Activity Detail: per therapies Discharge Diet: Regular and High Protein/High Calorie Follow Up Appointments: Provider,Not a Local [Primary Care Provider] - (will need new PCP appt after leaving SNF) Admit to: SNF Discharge Potential: Fair Length of Stay: 30-90 days Can use facility standing orders?: Yes Code Status: DNR/DNI TEDs: N/A Rehab Potential: Good Therapy: Physical Therapy and Occupational Therapy Therapy Orders: Evaluate and Treat and Gait Training Oxygen: No Urinary Catheter: No Glucose Checks: n/a Next INR: n/a Lab Orders: BMP around Saturday, 03/11 TSH and BMP on around Saturday, 04/01 Orders are good >30 days: Yes Signature: Kay Lentz MD
[2023-03-06 09:49] VITALS: BP 114/66; PULSE 61; RESP 20; TEMP 36.5
--- NOTE | 2023-03-06 10:43 | REH.PT ---
PT note: Per , yuli PT orders as pt is going t hospice services. Soc services in requesting info on transfers and amb for SNF. 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 Uses 4ww at home. Sit<>supine min assist. Pt can amb 40 feet with ww min assist with prosthesis on. Distance likely to vary with pt's SOB. Pt to dc to SNF, PT there could screen pt for staff instruction if condition and physical ability changes. Letty Mendoza, PT, DPT [id number]
--- NOTE | 2023-03-06 15:47 | PC.NURSE ---
shift note: pt dc'd via EMS to SNF. Nurse to nurse given via phone @ 1030 prior to pt leaving. IV dc'd intact L FA. LS dim. Pt has moist cough. Pt on RA with sats 91-93%. Pt does pursed lip breathing with activity due to sob. pt able to recover to normal resp rate within minutes of sitting down after activity. Pt denies pain. Pt states she feels bilat l/e weak when ambulating. Nicotine patch removed from pt's rt shoulder prior to dc. Rt squires mepilex intact. coccyx mepilex c/d/i. Belongings reviewed and sent with pt at dc.
== END 2023-03-06 12:30 | DRG 281 ==
LOC: ED 05:33 → MEDSURG 06:53
PROVIDERS: Family Medicine; Admitting Provider Hospitalist; Emergency Provider Family Medicine; Visit Provider Family Medicine
DX: I21.4 Non-ST elevation (NSTEMI) myocardial infarction (principal); E46 Unspecified protein-calorie malnutrition; Z68.1 Body mass index [BMI] 19.9 or less, adult; R62.7 Adult failure to thrive; F41.8 Other specified anxiety disorders; R53.1 Weakness; H16.203 Unspecified keratoconjunctivitis, bilateral; R74.01 Elevation of levels of liver transaminase levels; E86.0 Dehydration; Z91.148 Patient's other noncompliance with medication regimen for other reason; I10 Essential (primary) hypertension; F17.210 Nicotine dependence, cigarettes, uncomplicated; J44.9 Chronic obstructive pulmonary disease, unspecified; I70.0 Atherosclerosis of aorta; I08.3 Combined rheumatic disorders of mitral, aortic and tricuspid valves; M81.0 Age-related osteoporosis without current pathological fracture; E55.9 Vitamin D deficiency, unspecified; E03.9 Hypothyroidism, unspecified; E78.5 Hyperlipidemia, unspecified; L40.9 Psoriasis, unspecified
CPT/HCPCS: 36415; 70450; 71045; 71046; 71260; 74177; 76705; 80048; 80053; 80061; 81001; 81003; 82306; 82330; 82550; 82728; 82803; 82977; 83036; 83540; 83550; 83605; 83690; 83735; 83880; 84100; 84439; 84443; 84480; 84484; 85025; 85027; 85610; 86140; 87086; 93005; 93306; 94640; 94664; 97110; 97116; 97161; 97165; 97530; 97535; 99283; 99284; 99285; A9270; J3480; J7120; Q9967; S4990

== ENCOUNTER 2023-03-06 11:40 | Outpatient (CLI) | payer MEDICARE, BC, SELFPAY | END 2023-03-06 11:41 | disposition home or self-care (01) | LOC: AMB 03-07 12:39 | PROVIDERS: Visit Provider Emergency Medicine | DX: R53.1 Weakness (principal); R06.09 Other forms of dyspnea | CPT/HCPCS: A0425; A0428 ==